=== PATIENT | female | born 2000 | race Caucasian/White ===

== ENCOUNTER 2020-02-14 23:58 | Emergency (ER) | payer OTHER ==
[2020-02-15] MEDS ORDERED: SODIUM CHLORIDE 0.9% 1,000 ML IV STA (00:06)
[2020-02-15 00:09] VITALS: TEMP 97.3
[2020-02-15 00:22] VITALS: RESP 18
[2020-02-15 00:41] LABS: Basophils % (A) 0 %; Eosinophils # (A) 0.2 k/uL (0-0.7); Eosinophils % (A) 2 %; HCT 38.4 % (34.0-46.0); HGB 12.9 gm/dL (11.4-16.0); Lymphocytes % (A) 32 %; MCH 29.5 pg (25.0-35.0); MCHC 33.5 g/dL (31.0-37.0); MCV 88.1 fL (80.0-100.0); Mean Platelet Volume 8.2; Monocytes # (A) 0.4 k/uL (0-1.0); Monocytes % (A) 4 %; Neutrophils # (A) 5.5 k/uL (1.3-7.7); Neutrophils % (A) 60 %; Platelet Count 261 k/uL (150-450); RBC 4.36 m/uL (3.80-5.40); RDW 14.6 % (11.5-15.5); WBC 9.2 k/uL (4.0-11.0)
[2020-02-15 00:52] LABS: ALT 251 U/L (4-34); AST 439 U/L (14-36); African American GFR (CKD) >90 (>60 ml/min/1.73 sqM); Albumin 3.6 g/dL (3.5-5.0); Alcohol <10 mg/dL; Alkaline Phosphatase 66 U/L (38-126); Anion Gap 6 mmol/L; Blood Urea Nitrogen 8 mg/dL (7-17); Calcium 9.4 mg/dL (8.4-10.2); Carbon Dioxide 21 mmol/L (22-30); Chloride 104 mmol/L (98-107); Glucose 112 mg/dL (74-99); Non-African American GFR(CKD) >90 (>60 ml/min/1.73 sqM); Sodium 131 mmol/L (137-145); Total Bilirubin 0.8 mg/dL (0.2-1.3); Total Protein 6.5 g/dL (6.3-8.2)
--- NOTE | 2020-02-15 00:53 | CT ---
EXAM: CT Head Without Intravenous Contrast CLINICAL HISTORY: ITS.REASON CT Reason: trauma TECHNIQUE: Axial computed tomography images of the head/brain without intravenous contrast. CTDI is 25.8 mGy and DLP is 714.5 mGy-cm. This CT exam was performed using one or more of the following dose reduction techniques: automated exposure control, adjustment of the mA and/or kV according to patient size, and/or use of iterative reconstruction technique. COMPARISON: No relevant prior studies available. FINDINGS: Brain: Unremarkable. No hemorrhage. No significant white matter disease. No edema. Ventricles: Unremarkable. No ventriculomegaly. Bones/joints: Unremarkable. No acute fracture. Soft tissues: Unremarkable. Sinuses: Unremarkable as visualized. No acute sinusitis. Mastoid air cells: Unremarkable as visualized. No mastoid effusion. IMPRESSION: Normal head/brain CT. EXAM: CT Cervical Spine Without Intravenous Contrast CLINICAL HISTORY: ITS.REASON CT Reason: trauma TECHNIQUE: Axial computed tomography images of the cervical spine without intravenous contrast. CTDI is 9.1 mGy and DLP is 291 mGy-cm. This CT exam was performed using one or more of the following dose reduction techniques: automated exposure control, adjustment of the mA and/or kV according to patient size, and/or use of iterative reconstruction technique. COMPARISON: No relevant prior studies available. FINDINGS: Vertebrae: Unremarkable. No acute fracture. Soft tissues: Unremarkable. DISCS/SPINAL CANAL/NEURAL FORAMINA: C2-C3: Unremarkable. No significant disc disease. No stenosis. C3-C4: Unremarkable. No significant disc disease. No stenosis. C4-C5: Unremarkable. No significant disc disease. No stenosis. C5-C6: Unremarkable. No significant disc disease. No stenosis. C6-C7: Unremarkable. No significant disc disease. No stenosis. C7-T1: Unremarkable. No significant disc disease. No stenosis. IMPRESSION: Normal cervical spine CT.
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
[2020-02-15] MEDS ORDERED: MORPHINE SULFATE 4 MG/ML SYRINGE IVP STA (00:58)
[2020-02-15 01:01] LABS: INR 0.9 (<1.2); Partial Thromboplastin Time 23.6 sec (22.0-30.0); Prothrombin Time 9.6 sec (9.0-12.0)
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
--- NOTE | 2020-02-15 01:45 | XR ---
EXAM: XR Left Hand Complete, 3 or More Views CLINICAL HISTORY: ITS.REASON XR Reason: pain TECHNIQUE: Frontal, lateral and oblique views of the left hand. COMPARISON: No relevant prior studies available. FINDINGS: Bones/joints: Unremarkable. No acute fracture. No dislocation. Soft tissues: Unremarkable. No radiopaque foreign body. IMPRESSION: Normal left hand x-rays.
--- NOTE | 2020-02-15 01:49 | XR ---
EXAM: XR Left Tibia and Fibula, 2 Views CLINICAL HISTORY: ITS.REASON XR Reason: trauma TECHNIQUE: Frontal and lateral views of the left tibia and fibula. COMPARISON: No relevant prior studies available. FINDINGS: Bones/joints: Unremarkable. No acute fracture. No dislocation. Soft tissues: Unremarkable. No radiopaque foreign body. IMPRESSION: Normal left tibia and fibula x-rays.
[2020-02-15 02:33] VITALS: BP 100/53; PULSE 83
[2020-02-15] MEDS ORDERED: Acetaminophen-Codeine 300-30mg TAB PO STA (03:53)
== END 2020-02-15 04:10 | disposition home or self-care (01) ==
LOC: EC 23:58
DX: S01.81XA Laceration without foreign body of other part of head, initial encounter (principal); O9A.211 Injury, poisoning and certain other consequences of external causes complicating pregnancy, first trimester; S60.512A Abrasion of left hand, initial encounter; O26.611 Liver and biliary tract disorders in pregnancy, first trimester; R74.01 Elevation of levels of liver transaminase levels; Z32.01 Encounter for pregnancy test, result positive; Z91.018 Allergy to other foods; Z79.3 Long term (current) use of hormonal contraceptives; Z3A.00 Weeks of gestation of pregnancy not specified; V43.63XA Car passenger injured in collision with pick-up truck in traffic accident, initial encounter; Y92.488 Other paved roadways as the place of occurrence of the external cause; Y93.89 Activity, other specified
CPT/HCPCS: 36415; 86900; 86901; 80053; 85025; 85610; 85730; 86850; 84703; 80320; 73130; 73590; 72125; 70486; 70450; 99285; 96374; 96361; J2270

== ENCOUNTER 2023-09-16 12:56 | Emergency (ER) | payer OTHER ==
[2023-09-16 13:31] VITALS: RESP 18; TEMP 98
--- NOTE | 2023-09-16 13:47 | ED ---
SOB HPI - General Chief Complaint: Shortness of Breath Stated Complaint: asthma attack, SOB Time Seen by Provider: 09/16/23 13:46 Source: patient, RN notes reviewed Mode of arrival: ambulatory Limitations: no limitations - History of Present Illness Initial Comments: 22-year-old female presented to the ER with a chief complaint of shortness of breath. Patient has a past medical history significant of asthma. Patient reports she recently moved to this area and has not been able to follow-up with a primary care physician since. She states that she lost her inhaler last night and has been having an asthma attack since. She has not used her nebulizer as she is looking for it from her move. She denies any chest pain, dizziness, lightheadedness or abdominal pain. Patient does report that she was but denies any abdominal pain or vaginal bleeding. - Related Data Home Medications Medication Instructions Recorded Confirmed norgestimate-ethinyl estradioL 1 tab PO DAILY 11/25/19 11/25/19 [Sprintec 28 Day Tablet] Previous Rx's Medication Instructions Recorded Albuterol Inhaler [Ventolin Hfa 1 - 2 puff INHALATION Q6H PRN #1 09/16/23 Inhaler] each Albuterol Nebulized [Ventolin 2.5 mg INHALATION Q4H PRN #75 ml 09/16/23 Nebulized] Allergies Allergy/AdvReac Type Severity Reaction Status Date / Time banana Allergy Unknown Verified 09/16/23 13:27 bee venom protein (honey bee) Allergy Swelling Verified 09/16/23 13:27 diphenhydramine AdvReac Itching Verified 09/16/23 13:27 [From Benadryl] quetiapine [From Seroquel] AdvReac Itching Verified 09/16/23 13:27 Review of Systems ROS Statement: Those systems with pertinent positive or pertinent negative responses have been documented in the HPI. ROS Other: All systems not noted in ROS Statement are negative. Past Medical History Past Medical History: Thyroid Disorder History of Any Multi-Drug Resistant Organisms: None Reported Past Surgical History: No Surgical Hx Reported Past Psychological History: No Psychological Hx Reported Smoking Status: Never smoker Past Alcohol Use History: None Reported Past Drug Use History: None Reported General Exam Limitations: no limitations General appearance: alert, in no apparent distress ENT exam: Present: normal exam, normal oropharynx, mucous membranes moist Respiratory exam: Present: wheezes (bilaterally ) Cardiovascular Exam: Present: regular rate, normal rhythm, normal heart sounds. Absent: systolic murmur, diastolic murmur, rubs, gallop, clicks GI/Abdominal exam: Present: soft, normal bowel sounds. Absent: distended, tenderness, guarding, rebound, rigid Skin exam: Present: warm, dry, intact, normal color. Absent: rash Course Vital Signs 09/16/23 09/16/23 09/16/23 13:25 14:21 14:25 Temperature 98 F Pulse Rate 104 H 100 Respiratory 18 22 Rate Blood Pressure 103/71 O2 Sat by Pulse 95 Oximetry 09/16/23 09/16/23 14:28 15:15 Temperature 98 F Pulse Rate 104 H 98 Respiratory 18 Rate Blood Pressure 107/82 O2 Sat by Pulse 96 Oximetry Medical Decision Making - Medical Decision Making Was pt. sent in by a medical professional or institution (, PA, DRILL PRESS SET UP OPERATOR RADIAL, urgent care, hospital, or fci...) When possible be specific @ -No Did you speak to anyone other than the patient for history (EMS, parent, family, police, friend...)? What history was obtained from this source @ -No Did you review nursing and triage notes (agree or disagree)? Why? @ -I reviewed and agree with nursing and triage notes Were old charts reviewed (outside hosp., previous admission, EMS record, old EKG, old radiological studies, urgent care reports/EKG's, fci records)? Report findings @ -No old charts were reviewed Differential Diagnosis (chest pain, altered mental status, abdominal pain women, abdominal pain men, vaginal bleeding, weakness, fever, dyspnea, syncope, headache, dizziness, GI bleed, back pain, seizure, CVA, palpatations, mental health, musculoskeletal)? @ -Differential Dyspnea:Coronary syndrome, arrhythmia, tamponade, asthma, COPD, pulmonary embolism, pneumonia, pneumothorax, pulmonary effusion, anaphylaxis, diabetic ketoacidosis, flailed chest, pulmonary contusion, diaphragmatic rupture, anemia, neuromuscular, this is not meant to be an all-inclusive list. EKG interpreted by me (3pts min.). @ -None X-rays interpreted by me (1pt min.). @ -None done CT interpreted by me (1pt min.). @ -None done U/S interpreted by me (1pt. min.). @ -None done What testing was considered but not performed or refused? (CT, X-rays, U/S, labs)? Why? @ -Chest x-ray considered, patient refused. What meds were considered but not given or refused? Why? @ -Steroids considered but not given as patient is . Did you discuss the management of the patient with other professionals (professionals i.e. , PA, D[employer]LL [employer] SET UP OPERATOR RADIAL, lab, RT, psych nurse, nursing home social worker, zigzagger, teacher, chief commercial officer, rehabilitation case coordinator)? Give summary @ -No Was smoking cessation discussed for >3mins.? @ -No Was critical care preformed (if so, how long)? @ -No Were there social determinants of health that impacted care today? How? (Homelessness, low income, unemployed, alcoholism, drug addiction, transportation, low edu. Level, literacy, decrease access to med. care, halfway, rehab)? @ -Yes, patient recently moved to the area and has not establish care with a primary care physician yet. Was there de-escalation of care discussed even if they declined (Discuss DNR or withdrawal of care, Hospice)? DNR status @ -No What co-morbidities impacted this encounter? (DM, HTN, Smoking, COPD, CAD, Cancer, CVA, ARF, Chemo, Hep., AIDS, mental health diagnosis, sleep apnea, morbid obesity)? @ -Asthma, Was patient admitted / discharged? Hospital course, mention meds given and route, prescriptions, significant lab abnormalities, going to OR and other pertinent info. @ -Discharge. 22-year-old female presented to the ER with chief complaint shortness of breath. History and physical exam completed. Vitals stable. Patient no signs acute distress and nontoxic-appearing. Bilateral wheezing throughout all lung bentley. Patient refused chest x-ray. DuoNeb nebulizer given with improvement of wheezing. Upon reevaluation, patient resting comfortably in exam room in no signs of acute distress. Patient comfortable for discharge with albuterol inhaler and nebulizer. Advise follow-up with PCP, area PCP form given. Strict return parameters given. Patient discharged in stable condition. Patient verbally expressed understanding and agreement with care plan. Case discussed with ED attending, Dr. Blackman. Undiagnosed new problem with uncertain prognosis? @ -No Drug Therapy requiring intensive monitoring for toxicity (Heparin, Nitro, Insulin, Cardizem)? @ -No Were any procedures done? @ -No Diagnosis/symptom? @ -Asthma Acute, or Chronic, or Acute on Chronic? @ -acute on chronic Uncomplicated (without systemic symptoms) or Complicated (systemic symptoms)? @ -uncomplicated Side effects of treatment? @ -No Exacerbation, Progression, or Severe Exacerbation? @ -exacerbation Poses a threat to life or bodily function? How? (Chest pain, [place], [place], pneumonia, PE, COPD, DKA, ARF, appy, cholecystitis, CVA, Diverticulitis, Homicidal, Suicidal, threat to staff... and all critical care pts) @ -Possibly Disposition Clinical Impression: Asthma exacerbation Disposition: HOME SELF-CARE Condition: Stable Instructions (If sedation given, give patient instructions): Asthma (ED) Additional Instructions: Follow-up with PCP. Return to the ER for any new or worsening concerns. Prescriptions: Albuterol Inhaler [Ventolin Hfa Inhaler] 1 - 2 puff INHALATION Q6H PRN #1 each PRN Reason: Shortness Of Breath Albuterol Nebulized [Ventolin Nebulized] 2.5 mg INHALATION Q4H PRN #75 ml PRN Reason: difficulty in breathing Is patient prescribed a controlled substance at d/c from ED?: No Referrals: None,Stated [Primary Care Provider] - 1-2 days Forms: Area PCPs Time of Disposition: 15:05
[2023-09-16] MEDS: IPRATROPIUM-ALBUTEROL 3 ML NEB INHALATION STA (14:18)
[2023-09-16 15:23] VITALS: BP 107/82; PULSE 98
== END 2023-09-16 15:15 | disposition home or self-care (01) ==
LOC: EC 12:56
DX: J45.901 Unspecified asthma with (acute) exacerbation (principal); Z91.018 Allergy to other foods; Z88.8 Allergy status to other drugs, medicaments and biological substances; Z91.030 Bee allergy status
CPT/HCPCS: 94640; 99284

== ENCOUNTER 2023-09-17 15:44 | Emergency (ER) | payer OTHER ==
--- NOTE | 2023-09-17 16:48 | ED ---
General Adult HPI - General Chief complaint: Vaginal Bleeding Stated complaint: Vaginal bleeding-11 weeks preg Time Seen by Provider: 09/17/23 16:20 Source: patient, RN notes reviewed Mode of arrival: ambulatory Limitations: no limitations - History of Present Illness Initial comments: 22 year old A1 female at 11 weeks gestation presents to the emergency department for evaluation of vaginal bleeding in . Patient states that about 1 week ago she had experienced some bleeding and was evaluated here in the ED. She states that she "had a hemorrhage" at that time measuring 6.5 cm. Upon review of report, patient had a perigestational bleed. She states that since then she has had minimal spotting. She notes that today she went to use the bathroom and had darker red blood in the toilet. She states that since then she has had blood when she wipes. She admits to lower abdominal cramping. She reports that she is attempting to get into the [facility]. She has not had an appointment with them yet. - Related Data Home Medications Medication Instructions Recorded Confirmed norgestimate-ethinyl estradioL 1 tab PO DAILY 11/25/19 11/25/19 [Sprintec 28 Day Tablet] Previous Rx's Medication Instructions Recorded Albuterol Inhaler [Ventolin Hfa 1 - 2 puff INHALATION Q6H PRN #1 09/16/23 Inhaler] each Albuterol Nebulized [Ventolin 2.5 mg INHALATION Q4H PRN #75 ml 09/16/23 Nebulized] Allergies Allergy/AdvReac Type Severity Reaction Status Date / Time banana Allergy Unknown Verified 09/17/23 16:12 bee venom protein (honey bee) Allergy Swelling Verified 09/17/23 16:12 diphenhydramine AdvReac Itching Verified 09/17/23 16:12 [From Benadryl] quetiapine [From Seroquel] AdvReac Itching Verified 09/17/23 16:12 Review of Systems ROS Statement: Those systems with pertinent positive or pertinent negative responses have been documented in the HPI. ROS Other: All systems not noted in ROS Statement are negative. Past Medical History Past Medical History: No Reported History, Thyroid Disorder History of Any Multi-Drug Resistant Organisms: None Reported Past Surgical History: No Surgical Hx Reported Past Psychological History: No Psychological Hx Reported Smoking Status: Never smoker Past Alcohol Use History: None Reported Past Drug Use History: None Reported General Exam Limitations: no limitations General appearance: alert, in no apparent distress Head exam: Present: atraumatic, normocephalic, normal inspection Eye exam: Present: normal appearance, PERRL, EOMI. Absent: scleral icterus, conjunctival injection, periorbital swelling ENT exam: Present: normal exam, mucous membranes moist Neck exam: Present: normal inspection. Absent: tenderness, meningismus, lymphadenopathy Respiratory exam: Present: normal lung sounds bilaterally. Absent: respiratory distress, wheezes, rales, rhonchi, stridor Cardiovascular Exam: Present: regular rate, normal rhythm, normal heart sounds. Absent: systolic murmur, diastolic murmur, rubs, gallop, clicks GI/Abdominal exam: Present: soft, normal bowel sounds. Absent: distended, tenderness, guarding, rebound, rigid Extremities exam: Present: normal inspection, full ROM, normal capillary refill. Absent: tenderness, pedal edema, joint swelling, calf tenderness Neurological exam: Present: alert, oriented X3 Psychiatric exam: Present: normal affect, normal mood Skin exam: Present: warm, dry, intact, normal color. Absent: rash Course Vital Signs 09/17/23 09/17/23 16:07 19:59 Temperature 98.5 F 98.3 F Pulse Rate 97 98 Respiratory 18 19 Rate Blood Pressure 117/83 121/78 O2 Sat by Pulse 99 99 Oximetry Medical Decision Making - Medical Decision Making Was pt. sent in by a medical professional or institution ([facility]NICA Feliciano, SILK [employer] MACHINE OPERATOR, urgent care, hospital, or longterm...) When possible be specific @ -No Did you speak to anyone other than the patient for history (EMS, parent, family, police, friend...)? What history was obtained from this source @ -No Did you review nursing and triage notes (agree or disagree)? Why? @ -I reviewed and agree with nursing and triage notes Were old charts reviewed (outside hosp., previous admission, EMS record, old EKG, old radiological studies, urgent care reports/EKG's, longterm records)? Report findings @ -Ultrasound reviewed from prior visit 1 week ago which showed a 6.5 cm perigestational bleed Differential Diagnosis (chest pain, altered mental status, abdominal pain women, abdominal pain men, vaginal bleeding, weakness, fever, dyspnea, syncope, headache, dizziness, GI bleed, back pain, seizure, CVA, palpatations, mental health, musculoskeletal)? @ -Differential Vaginal Bleeding: Spontaneous , threatened , molar , ectopic , bloody show, incompetent cervix, abruptioplacenta, placenta previa, uterine rupture, dysfunctional uterine bleeding, hemorrhage, uterine fibroids, this is not meant to be an all-inclusive list. EKG interpreted by me (3pts min.). @ -None X-rays interpreted by me (1pt min.). @ -None done CT interpreted by me (1pt min.). @ -None done U/S interpreted by me (1pt. min.). @ - ultrasound shows single live intrauterine measuring 10 weeks 6 days with a heart rate of 156 with anechoic area adjacent to gestational sac that is slightly smaller than prior What testing was considered but not performed or refused? (CT, X-rays, U/S, labs)? Why? @ -None What meds were considered but not given or refused? Why? @ -None Did you discuss the management of the patient with other professionals (professionals i.e. , PA, SILK [employer] MACHINE OPERATOR, lab, RT, psych nurse, family welfare social work professor, separator tender, teacher, privacy officer, case picker)? Give summary @ -No Was smoking cessation discussed for >3mins.? @ -No Was critical care preformed (if so, how long)? @ -No Were there social determinants of health that impacted care today? How? (Homelessness, low income, unemployed, alcoholism, drug addiction, transportation, low edu. Level, literacy, decrease access to med. care, usp, rehab)? @ -No Was there de-escalation of care discussed even if they declined (Discuss DNR or withdrawal of care, Hospice)? DNR status @ -No What co-morbidities impacted this encounter? (DM, HTN, Smoking, COPD, CAD, Cancer, CVA, ARF, Chemo, Hep., AIDS, mental health diagnosis, sleep apnea, morbid obesity)? @ -None Was patient admitted / discharged? Hospital course, mention meds given and route, prescriptions, significant lab abnormalities, going to OR and other pertinent info. @ -Discharged. Patient presented to the emergency department for evaluation of lower abdominal cramping and vaginal bleeding in . She states that earlier today she had passed a large clot. She states that since then she has had light spotting. She does note continued lower abdominal cramping. She was evaluated for similar symptoms 1 week ago and was told that she had a perigestational bleed measuring 6.5 cm. Labs were obtained today which Are unremarkable other than Quantitative hCG of [id number]; UA shows no evidence of infectious process. Ultrasound obtained which shows a single live intrauterine measuring 10 weeks 6 days with a heart rate of 156. There is a anechoic region adjacent to the gestational sac which is slightly smaller than on her prior ultrasound 1 week ago. Positive blood type not requiring rhogam. Patient advised on findings and will be discharged home with follow-up to her [facility]. Patient understanding agreeable plan. Patient stable at time of discharge. Case discussed with Dr. Santamaria. Undiagnosed new problem with uncertain prognosis? @ -No Drug Therapy requiring intensive monitoring for toxicity (Heparin, Nitro, Insulin, Cardizem)? @ -No Were any procedures done? @ -No Diagnosis/symptom? @ -Chorionic hematoma Acute, or Chronic, or Acute on Chronic? @ -acute Uncomplicated (without systemic symptoms) or Complicated (systemic symptoms)? @ -uncomplicated Side effects of treatment? @ -No Exacerbation, Progression, or Severe Exacerbation? @ -No Poses a threat to life or bodily function? How? (Chest pain, USA, NH, pneumonia, PE, COPD, DKA, ARF, appy, cholecystitis, CVA, Diverticulitis, Homicidal, Suicidal, threat to staff... and all critical care pts) @ -No - Lab Data Result diagrams: 09/17/23 17:13 09/17/23 17:13 Lab Results 09/17/23 09/17/23 09/17/23 Range/Units 16:21 17:13 17:13 WBC 7.3 (3.8-10.6) k/uL RBC 4.41 (3.80-5.40) m/uL Hgb 11.4 (11.4-16.0) gm/dL Hct 36.1 (34.0-46.0) % MCV 81.8 (80.0-100.0) fL MCH 25.9 (25.0-35.0) pg MCHC 31.7 (31.0-37.0) g/dL RDW 15.3 (11.5-15.5) % Plt Count 257 (150-450) k/uL MPV 8.8 Neutrophils % 62 % Lymphocytes % 24 % Monocytes % 6 % Eosinophils % 4 % Basophils % 0 % Neutrophils # 4.5 (1.3-7.7) k/uL Lymphocytes # 1.8 (1.0-4.8) k/uL Monocytes # 0.4 (0-1.0) k/uL Eosinophils # 0.3 (0-0.7) k/uL Basophils # 0.0 (0-0.2) k/uL PT 10.5 (10.0-12.5) sec INR 0.9 (<1.2) APTT 26.0 (22.0-30.0) sec Sodium (137-145) mmol/L Potassium (3.5-5.1) mmol/L Chloride (98-107) mmol/L Carbon Dioxide (22-30) mmol/L Anion Gap mmol/L BUN (7-17) mg/dL Creatinine (0.52-1.04) mg/dL Est GFR (CKD-EPI)AfAm (>60 ml/min/1.73 sqM) Est GFR (CKD-EPI)NonAf (>60 ml/min/1.73 sqM) Glucose (74-99) mg/dL Calcium (8.4-10.2) mg/dL Total Bilirubin (0.2-1.3) mg/dL AST (14-36) U/L ALT (4-34) U/L Alkaline Phosphatase (38-126) U/L Total Protein (6.3-8.2) g/dL Albumin (3.5-5.0) g/dL HCG, Quant mIU/mL Urine Color Yellow Urine Appearance Clear (Clear) Urine pH 5.5 (5.0-8.0) Ur Specific Perryman 1.031 (1.001-1.035) Urine Protein Trace H (Negative) Urine Glucose (UA) Negative (Negative) Urine Ketones 3+ H (Negative) Urine Blood Moderate H (Negative) Urine Nitrite Negative (Negative) Urine Bilirubin Negative (Negative) Urine Urobilinogen <2.0 (<2.0) mg/dL Ur Leukocyte Esterase Negative (Negative) Urine RBC 2 (0-5) /hpf Urine WBC 1 (0-5) /hpf Ur Squamous Epith Cells 2 (0-4) /hpf Urine Mucus Rare H (None) /hpf 09/17/23 Range/Units 17:13 WBC (3.8-10.6) k/uL RBC (3.80-5.40) m/uL Hgb (11.4-16.0) gm/dL Hct (34.0-46.0) % MCV (80.0-100.0) fL MCH (25.0-35.0) pg MCHC (31.0-37.0) g/dL RDW (11.5-15.5) % Plt Count (150-450) k/uL MPV Neutrophils % % Lymphocytes % % Monocytes % % Eosinophils % % Basophils % % Neutrophils # (1.3-7.7) k/uL Lymphocytes # (1.0-4.8) k/uL Monocytes # (0-1.0) k/uL Eosinophils # (0-0.7) k/uL Basophils # (0-0.2) k/uL PT (10.0-12.5) sec INR (<1.2) APTT (22.0-30.0) sec Sodium 134 L (137-145) mmol/L Potassium 3.7 (3.5-5.1) mmol/L Chloride 107 (98-107) mmol/L Carbon Dioxide 17 L (22-30) mmol/L Anion Gap 10 mmol/L BUN 7 (7-17) mg/dL Creatinine 0.53 (0.52-1.04) mg/dL Est GFR (CKD-EPI)AfAm >90 (>60 ml/min/1.73 sqM) Est GFR (CKD-EPI)NonAf >90 (>60 ml/min/1.73 sqM) Glucose 81 (74-99) mg/dL Calcium 9.1 (8.4-10.2) mg/dL Total Bilirubin 0.8 (0.2-1.3) mg/dL AST 20 (14-36) U/L ALT 14 (4-34) U/L Alkaline Phosphatase 59 (38-126) U/L Total Protein 6.8 (6.3-8.2) g/dL Albumin 3.9 (3.5-5.0) g/dL HCG, Quant 775022.0 mIU/mL Urine Color Urine Appearance (Clear) Urine pH (5.0-8.0) Ur Specific Perryman (1.001-1.035) Urine Protein (Negative) Urine Glucose (UA) (Negative) Urine Ketones (Negative) Urine Blood (Negative) Urine Nitrite (Negative) Urine Bilirubin (Negative) Urine Urobilinogen (<2.0) mg/dL Ur Leukocyte Esterase (Negative) Urine RBC (0-5) /hpf Urine WBC (0-5) /hpf Ur Squamous Epith Cells (0-4) /hpf Urine Mucus (None) /hpf Disposition Clinical Impression: Threatened miscarriage in early , Vaginal bleeding during Disposition: HOME SELF-CARE Condition: Stable Instructions (If sedation given, give patient instructions): Threatened Miscarriage (ED), Abdominal Pain in (ED) Additional Instructions: Please follow up with [facility]. Return to the emergency department for new or worsening symptoms. Is patient prescribed a controlled substance at d/c from ED?: No Referrals: None,Stated [Primary Care Provider] - 1-2 days
[2023-09-17 17:23] LABS: Basophils % (A) 0 %; Eosinophils # (A) 0.3 k/uL (0-0.7); Eosinophils % (A) 4 %; HCT 36.1 % (34.0-46.0); HGB 11.4 gm/dL (11.4-16.0); Lymphocytes # (A) 1.8 k/uL (1.0-4.8); Lymphocytes % (A) 24 %; MCH 25.9 pg (25.0-35.0); MCHC 31.7 g/dL (31.0-37.0); MCV 81.8 fL (80.0-100.0); Mean Platelet Volume 8.8; Monocytes # (A) 0.4 k/uL (0-1.0); Monocytes % (A) 6 %; Neutrophils # (A) 4.5 k/uL (1.3-7.7); Neutrophils % (A) 62 %; Platelet Count 257 k/uL (150-450); RBC 4.41 m/uL (3.80-5.40); RDW 15.3 % (11.5-15.5); WBC 7.3 k/uL (3.8-10.6)
[2023-09-17 17:31] LABS: INR 0.9 (<1.2); Prothrombin Time 10.5 sec (10.0-12.5)
[2023-09-17 17:35] LABS: ALT 14 U/L (4-34); AST 20 U/L (14-36); African American GFR (CKD) >90 (>60 ml/min/1.73 sqM); Albumin 3.9 g/dL (3.5-5.0); Alkaline Phosphatase 59 U/L (38-126); Anion Gap 10 mmol/L; Blood Urea Nitrogen 7 mg/dL (7-17); Calcium 9.1 mg/dL (8.4-10.2); Carbon Dioxide 17 mmol/L (22-30); Chloride 107 mmol/L (98-107); Glucose 81 mg/dL (74-99); Non-African American GFR(CKD) >90 (>60 ml/min/1.73 sqM); Potassium 3.7 mmol/L (3.5-5.1); Sodium 134 mmol/L (137-145); Total Bilirubin 0.8 mg/dL (0.2-1.3); Total Protein 6.8 g/dL (6.3-8.2)
--- NOTE | 2023-09-17 18:53 | US ---
EXAMINATION TYPE: Transabdominal DATE OF EXAM: 09/17/2023 5:41 PM COMPARISON: 09/11/2023 CLINICAL INDICATION: Female, 22 years old with history of bleeding 11 wks; Pain and heavy bleeding pe r patient. EXAM PERFORMED: Transabdominal (TA) EXAM MEASUREMENTS: GESTATIONAL AGE / DATING Dates by LMP: (11 weeks/2 days) EDC: 04/05/2024 Dates by First Scan: (10 weeks/6 days) EDC: 04/08/2024 Dates by Current Scan for: (10 weeks/6 days) EDC: 04/08/2024 MATERNAL ANATOMY Uterus: 10.1 x 8.1 x 9.9cm, anteverted Right Ovary: 3.0 x 1.7 x 2.8cm. WNL as best seen Left Ovary: 3.4 x 2.0 x 3.4 cm. WNL as best seen Post CDS / Adnexa: WNL Presence of free fluid: No Presence of corpus luteal cyst: No Presence of subchorionic bleed: Yes, 4.3 x 1.1 x 6.1cm anechoic area seen. Previously measured 5.7 x 1.7 x 6.6cm. GESTATION / SURVEY CRL: 3.9 (10 weeks/6 days) Yolk Sac (normal less than 6mm): 5mm Heart Rate: 156 bpm Rhythm: Normal IUP: Viable IUP Date of LMP: 06/30/2023 Beta HcG (if available): Not available at this time IMPRESSION: 1. Single intrauterine gestation estimated at 10 weeks 6 days gestation based on the crown-rump lengt h. Cardiac activity measures 156 bpm. 2. Anechoic area adjacent to the gestational sac, slightly smaller than comparison.
[2023-09-17 20:18] LABS: Appearance,Urine Clear (Clear); Bilirubin,Urine Negative (Negative); Blood,Urine Moderate (Negative); Color,Urine Yellow; Glucose,Urine (UA) Negative (Negative); Ketones,Urine 3+ (Negative); Leukocyte Esterase,Urine Negative (Negative); Mucus,Urine Rare /hpf; Nitrite,Urine Negative (Negative); PH, Urine 5.5 (5.0-8.0); Protein,Urine Trace (Negative); RBC,Urine 2 /hpf (0-5); Specific Gravity,Urine 1.031 (1.001-1.035); Squamous Epithelial Cell,Urine 2 /hpf (0-4); Urobilinogen,Urine <2.0 mg/dL (<2.0); WBC,Urine 1 /hpf (0-5)
[2023-09-17 20:22] VITALS: BP 121/78; PULSE 98; RESP 19; TEMP 98.3
== END 2023-09-17 20:02 | disposition home or self-care (01) ==
LOC: EC 15:44
DX: O20.0 Threatened abortion (principal); Z91.018 Allergy to other foods; Z91.030 Bee allergy status; Z88.8 Allergy status to other drugs, medicaments and biological substances; Z3A.11 11 weeks gestation of pregnancy
CPT/HCPCS: 36415; 76801; 80053; 81001; 84702; 85025; 85610; 85730; 99284

== ENCOUNTER 2023-12-19 10:02 | Emergency (ER) | payer OTHER | END 2023-12-19 12:18 | disposition home or self-care (01) | LOC: EC 10:02 | CPT/HCPCS: 26010; 99282 ==

== ENCOUNTER 2024-03-15 05:45 | Inpatient (IN) | payer OTHER ==
[2024-03-15] MEDS ORDERED: TERBUTALINE 1 MG/ML VIAL SQ PRN (06:04)
[2024-03-15] MEDS ORDERED: METHYLERGONOVINE 0.2 MG/ML 1 ML AMP IM PRN (06:04)
[2024-03-15] MEDS ORDERED: miSOPROStoL 200 MCG TAB RECTAL PRN (06:04)
[2024-03-15] MEDS ORDERED: LIDOCAINE 0.5% (PF) 5 MG/ML (50 ML SDV) SQ PRN (06:04)
[2024-03-15] MEDS ORDERED: OXYTOCIN 10 UNIT/ML 1 ML VIAL IM PRN (06:04)
[2024-03-15] MEDS ORDERED: TRANEXAMIC 1,000 MG/100ML-NACL 1,000 MG in EMPTY BAG 1 BAG IV PRN (06:04)
[2024-03-15] MEDS ORDERED: CARBOPROST TROMETHAMINE 250 MCG/ML 1 ML AMP IM PRN (06:04)
[2024-03-15] MEDS ORDERED: miSOPROStoL 200 MCG TAB PO PRN (06:04)
[2024-03-15] MEDS: LACTATED RINGERS 1,000 ML IV SCH (06:22)
[2024-03-15 06:26] LABS: Anisocytosis Slight; Basophils % (A) 0 %; Eosinophils # (A) 0.2 k/uL (0-0.7); Eosinophils % (A) 2 %; HCT 28.3 % (34.0-46.0); HGB 8.8 gm/dL (11.4-16.0); Hypochromasia Marked; Lymphocytes # (A) 1.9 k/uL (1.0-4.8); Lymphocytes % (A) 18 %; MCH 23.1 pg (25.0-35.0); MCHC 31.2 g/dL (31.0-37.0); MCV 74.2 fL (80.0-100.0); Microcytosis Slight; Monocytes # (A) 0.6 k/uL (0-1.0); Monocytes % (A) 6 %; Neutrophils # (A) 7.5 k/uL (1.3-7.7); Neutrophils % (A) 72 %; Platelet Count 277 k/uL (150-450); RBC 3.81 m/uL (3.80-5.40); RDW 16.9 % (11.5-15.5); WBC 10.5 k/uL (3.8-10.6)
[2024-03-15] MEDS: PENICILLIN G POTASSIUM 5,000,000 UNIT in DEXTROSE 5% IN WATER 100 ML IVPB STA (06:27)
[2024-03-15] MEDS: OXYTOCIN 30 UNITS/500 ML NS 30 UNIT in SALINE 1 500ML.BAG IV SCH (06:28)
[2024-03-15] MEDS ORDERED: BUTORPHANOL 1 MG/ML 1 ML VIAL IV PRN (07:21)
--- NOTE | 2024-03-15 07:25 | P.HPOB ---
History of Present Illness H&P Date: 03/15/24 Chief Complaint: 37-0/7 weeks, IUGR, induction The patient is a 23-year-old 5 para 3-0-1-3 admitted at 37-0/7 weeks as established by last menstrual period and confirmed by 12-week ultrasound. She is admitted for induction of labor secondary to the diagnosis of intrauterine growth restriction with growth consistently at less than 10th percentile during the . Routine twice weekly testing has been reassuring throughout. Her has been otherwise uncomplicated though she is rubella nonimmune. She is also known to be group B strep positive. On labor delivery, all signs are reassuring with a category 1 heart rate tracing. The patient has requested tubal ligation which will be carried out if section becomes necessary but otherwise will be carried out in the phase. Obstetrical history: 5 para 3-0-1-3 with 3 term vaginal deliveries. Current statistics are listed in history of present illness. EDC of 04/05/2024 was established by last menstrual period and confirmed by 12-week u ltrasound. Laboratory workup demonstrates a blood type of O+ with a negative antibody screen. Rubella status is nonimmune. The remainder of the laboratory workup is within normal limits. 1 hour Glucola was normal and group B strep status is positive. Gynecologic history: Unremarkable with no history of any infections to include STDs. Review of Systems Review of systems is confined to history of present illness. Past Medical History Past Medical History: Asthma, Thyroid Disorder History of Any Multi-Drug Resistant Organisms: None Reported Past Surgical History: No Surgical Hx Reported Additional Past Surgical History / Comment(s): D&C 2021 Past Anesthesia/Blood Transfusion Reactions: No Reported Reaction Past Psychological History: No Psychological Hx Reported Smoking Status: Former smoker Past Alcohol Use History: None Reported Past Drug Use History: Marijuana Additional Drug Use History / Comment(s): Past smoker - Past Family History Brother(s) Additional Family Medical History / Comment(s): Neofibromatosis Medications and Allergies Home Medications Medication Instructions Recorded Confirmed Type Albuterol Inhaler [Ventolin Hfa 1 - 2 puff INHALATION Q6H PRN #1 09/16/23 Rx Inhaler] each Albuterol Nebulized [Ventolin 2.5 mg INHALATION Q4H PRN #75 ml 09/16/23 03/15/24 Rx Nebulized] Levothyroxine Sodium [Synthroid] 50 mcg PO DAILY 03/15/24 03/15/24 History Allergies Allergy/AdvReac Type Severity Reaction Status Date / Time banana Allergy Unknown Verified 03/15/24 06:01 bee venom protein (honey bee) Allergy Swelling Verified 03/15/24 06:01 diphenhydramine AdvReac Itching Verified 03/15/24 06:01 [From Benadryl] quetiapine [From Seroquel] AdvReac Itching Verified 03/15/24 06:01 Exam Vital Signs Temp Pulse Resp BP Pulse Ox 03/15/24 06:00 96.7 F L 105 H 18 115/64 98 Intake and Output 03/14/24 03/15/24 03/15/24 22:59 06:59 14:59 Other: # Voids 1 Weight 72.121 kg In general, this is a well-developed, well-nourished white female in no acute distress. Her heart has a regular rhythm rate without murmur. Her lungs are clear to auscultation bilateral in all bentley. Her abdomen is gravid, nondistended, has normal active bowel sounds, soft, nontender, and without any palpable masses aside from uterine fundus. Her extremities are without any cyanosis, clubbing, or edema and are nontender to palpation bilaterally. Digital cervical examination demonstrates her cervix to be 1 to 2 cm dilated, 50% effaced, with a vertex and presentation at -2 station. Artificial rupture of membranes is carried out demonstrating clear fluid. Results Result Diagrams: 03/15/24 06:08 Abnormal Lab Results - Last 24 Hours (Table) 03/15/24 Range/Units 06:08 Hgb 8.8 L (11.4-16.0) gm/dL Hct 28.3 L (34.0-46.0) % MCV 74.2 L (80.0-100.0) fL MCH 23.1 L (25.0-35.0) pg RDW 16.9 H (11.5-15.5) % Assessment and Plan (1) Group B streptococcal infection in Current Visit: Yes Status: Acute Code(s): O98.819 - OTH MATERNAL INFEC/PARASTC DISEASES COMP PREG, UNSP TRI; B95.1 - STREPTOCOCCUS, GROUP B, CAUSING DISEASES CLASSD [id number] SNOMED Code(s): 900830659 (2) Intrauterine growth retardation in Current Visit: Yes Status: Acute Code(s): O36.5990 - MATERN CARE FOR OTH OR SUSP POOR FETL GRTH, UNSP TRI, UNSP SNOMED Code(s): 290956267 (3) Term Current Visit: Yes Status: Acute Code(s): Z34.90 - ENCNTR FOR SUPRVSN OF NORMAL , UNSP, UNSP TRIMESTER SNOMED Code(s): 86257547 Plan: The patient has been admitted for induction of labor. Pitocin augmentation has been started and artificial rupture membranes carried out. She will have close maternal and surveillance and expectant management will be practiced. She is a good candidate for either IV or epidural analgesia, whichever she may choose.
[2024-03-15] MEDS: PENICILLIN G POTASSIUM 2,500,000 UNIT in DEXTROSE 5% IN WATER 100 ML IVPB SCH (11:07)
[2024-03-15] MEDS: NALBUPHINE 10 MG/ML (10 ML MDV) IV PRN (13:09)
[2024-03-15] MEDS ORDERED: ROPIVACAINE 5 MG/ML 30 ML VIAL ONE (17:20)
[2024-03-15] MEDS ORDERED: fentaNYL (PF) 50 MCG/ML 5 ML AMP ONE (17:20)
[2024-03-15] MEDS ORDERED: SODIUM CHLORIDE 0.9% 250 ML BAG ONE (17:20)
[2024-03-15] MEDS: ALBUTEROL HFA INHALER INHALATION PRN (20:23)
[2024-03-15] MEDS ORDERED: LANOLIN CREAM 1 GM TUBE TOPICAL PRN (21:46)
[2024-03-15] MEDS ORDERED: ZOLPIDEM 5 MG TAB PO PRN (21:46)
[2024-03-15] MEDS ORDERED: BENZOCAINE/MENTHOL SPRAY 1 GM/SPRAY AEROSOL TOPICAL PRN (21:46)
[2024-03-15] MEDS ORDERED: HYDROCORTISONE 2.5% RECTAL CREAM 30 GM TUBE RECTAL PRN (21:46)
[2024-03-15] MEDS ORDERED: SIMETHICONE 80 MG CHEWABLE PO PRN (21:46)
[2024-03-15] MEDS ORDERED: ACETAMINOPHEN TAB 500 MG TAB PO PRN (21:46)
--- NOTE | 2024-03-15 21:51 | P.PROBDLV ---
Vaginal Delivery Note - . Vaginal Delivery Note: The patient is a 23-year-old 5 para 3-0-1-3 admitted at 37-0/7 weeks by good dating parameters. She is admitted for induction of labor secondary to a diagnosis of intrauterine growth restriction for which she had twice weekly testing which was reassuring throughout the since the diagnosis. Her was otherwise uncomplicated though she is known to be rubella immune. She additionally was found to be group B strep positive. On labor and delivery, all signs were reassuring with a category 1 heart rate tracing. She had antibiotic prophylaxis started for group B strep and Pitocin augmentation started. She underwent artificial rupture of membranes for clear fluid. She made slow progress through the latent phase of labor and shortly after the onset of active phase of labor had an epidural catheter placed for analgesia. She then made steady progress through the remainder of the active phase of labor to complete and 0 station. She pushed over the course of 1 contraction to a normal spontaneous vaginal delivery of a viable 5 pound 7 ounce baby girl with Apgars of 9 at 1 minute and 9 at 5 minutes delivered in the right occiput anterior position. The placenta was delivered spontaneously, intact, and grossly normal with a grossly normal roughly centrally inserted three-vessel cord that was otherwise fairly short. There were no lacerations of the perineum, vagina, or cervix. Estimated blood loss for the case was 150 mL. There were no complications. All sponge, instrument, and needle counts were correct. Both mother and infant are resting comfortably in recovery.
[2024-03-15 22:00] VITALS: RESP 16
[2024-03-15] MEDS ORDERED: OXYTOCIN 30 UNITS/500 ML NS 30 UNIT in SALINE 1 500ML.BAG IV SCH (22:00)
[2024-03-16 07:19] LABS: Anisocytosis Slight; Basophils % (A) 0 %; Eosinophils # (A) 0.2 k/uL (0-0.7); Eosinophils % (A) 2 %; HCT 30.8 % (34.0-46.0); HGB 9.5 gm/dL (11.4-16.0); Hypochromasia Marked; Lymphocytes # (A) 1.8 k/uL (1.0-4.8); Lymphocytes % (A) 13 %; MCH 23.3 pg (25.0-35.0); MCHC 30.8 g/dL (31.0-37.0); MCV 75.6 fL (80.0-100.0); Mean Platelet Volume 7.4; Microcytosis Slight; Monocytes # (A) 0.8 k/uL (0-1.0); Monocytes % (A) 6 %; Neutrophils # (A) 10.5 k/uL (1.3-7.7); Neutrophils % (A) 77 %; Platelet Count 266 k/uL (150-450); RBC 4.08 m/uL (3.80-5.40); WBC 13.6 k/uL (3.8-10.6)
[2024-03-16] MEDS: IBUPROFEN 800 MG TAB PO PRN (08:38)
[2024-03-16] MEDS: SENNOSIDES-DOCUSATE SODIUM 1 EACH TAB PO SCH (08:39)
--- NOTE | 2024-03-16 08:46 | P.DS ---
Providers Date of admission: 03/15/24 05:45 Expected date of discharge: 03/16/24 Attending physician: Arden Marques Primary care physician: Stated None - Discharge Diagnosis(es) (1) Group B streptococcal infection in Current Visit: Yes Status: Acute (2) Intrauterine growth retardation in Current Visit: Yes Status: Acute (3) Term Current Visit: Yes Status: Acute (4) Normal spontaneous vaginal delivery Current Visit: Yes Status: Acute Hospital Course: The patient is a 23-year-old 5 para 3-0-1-3 admitted at 37-0/7 weeks by good dating parameters. She is admitted for induction of labor secondary to IUGR. testing was reassuring twice weekly from the time of the diagnosis during her . She was otherwise uncomplicated in though she is rubella nonimmune and group B strep positive. On labor delivery, all signs are reassuring with a category 1 heart rate tracing. She had antibiotic prophylaxis started along with Pitocin augmentation and underwent artificial rupture of membranes for clear fluid. She made very slow progress through the latent phase of labor and ultimately had a an epidural catheter placed for analgesia. She then progressed more steadily through the active phase of labor and ultimately reached complete and 0 station. She pushed over the course of 1 contraction to a normal spontaneous vaginal delivery of a viable 5 pound 7 ounce baby girl with Apgars of 9 at 1 minute and 9 at 5 minutes. Her course has been unremarkable with vital signs remaining stable and her temperature was afebrile throughout. She was deemed stable for discharge on day #1 and was discharged home to follow-up in the office in 6 weeks time routinely. She may potentially choose to stay 1 more night but is uncertain at this time as delivery was late. Discharge instructions included calling for any significantly increased bleeding or foul-smelling lochia, significantly increased fever abdominal pain, perineal complaints, breast complaints, or anything else that concerned her. She was additionally instructed to have nothing in the vagina for at least 6 weeks time to include intercourse. She understood her instructions and agrees to follow-up as noted above. Maternal blood type is O+ and rubella status is nonimmune. She was to receive the MMR vaccination prior to discharge. She additionally has requested tubal ligation and will follow-up for scheduling of outpatient surgery at or just short of the normal visit interval. Procedures: #1. Antibiotic prophylaxis #2. Pitocin induction #3. Artificial rupture of membranes #4. Epidural analgesia #5. Normal spontaneous vaginal delivery Patient Condition at Discharge: Stable Plan - Discharge Summary New Discharge Prescriptions: No Action Levothyroxine Sodium [Synthroid] 50 mcg PO DAILY Albuterol Inhaler [Ventolin Hfa Inhaler] 1 - 2 puff INHALATION Q6H PRN #1 each PRN Reason: Shortness Of Breath Albuterol Nebulized [Ventolin Nebulized] 2.5 mg INHALATION Q4H PRN #75 ml PRN Reason: difficulty in breathing Discharge Medication List Albuterol Inhaler [Ventolin Hfa Inhaler] 1 - 2 puff INHALATION Q6H PRN #1 each 09/16/23 [Rx] Albuterol Nebulized [Ventolin Nebulized] 2.5 mg INHALATION Q4H PRN #75 ml 09/16/23 [Rx] Levothyroxine Sodium [Synthroid] 50 mcg PO DAILY 03/15/24 [History] Follow up Appointment(s)/Referral(s): Arden Marques MD [STAFF PHYSICIAN] - 04/26/24 2:45 pm Discharge Disposition: HOME SELF-CARE
[2024-03-17 16:04] VITALS: BP 112/78; PULSE 79; TEMP 99.4
== END 2024-03-17 16:05 | disposition home or self-care (01) | DRG 560 ==
LOC: 4FBP 05:45
PROVIDERS: ADMIT Obstetrics & Gynecology; ATTEND Obstetrics & Gynecology
PROC: 10E0XZZ Delivery of Products of Conception, External Approach (ICD-10-PCS; principal; 2024-03-15)
PROC: 10907ZC Drainage of Amniotic Fluid, Therapeutic from Products of Conception, Via Natural or Artificial Opening (ICD-10-PCS; 2024-03-15)
PROC: 3E033VJ Introduction of Other Hormone into Peripheral Vein, Percutaneous Approach (ICD-10-PCS; 2024-03-15)
DX: O36.5930 Maternal care for other known or suspected poor fetal growth, third trimester, not applicable or unspecified (principal); Z37.0 Single live birth; O98.82 Other maternal infectious and parasitic diseases complicating childbirth; B95.1 Streptococcus, group B, as the cause of diseases classified elsewhere; O99.824 Streptococcus B carrier state complicating childbirth; E07.9 Disorder of thyroid, unspecified; Z3A.37 37 weeks gestation of pregnancy; Z87.891 Personal history of nicotine dependence; Z79.890 Hormone replacement therapy
CPT/HCPCS: 85025; 86850; 86900; 86901

== ENCOUNTER 2024-06-15 16:09 | Emergency (ER) | payer OTHER ==
--- NOTE | 2024-06-15 17:34 | ED ---
Chest Pain HPI - General Chief Complaint: Chest Pain Stated Complaint: Chest pains Time Seen by Provider: 06/15/24 17:06 Source: patient Mode of arrival: ambulatory Limitations: no limitations - History of Present Illness Initial Comments: 23-year-old female presenting chief complaint of shortness of breath and chest pain. Patient started experiencing cough and shortness of breath yesterday. Chest pain started about 2 hours ago. This is a sharp pain worse with coughing. Patient does have history of asthma and is a daily vapor. No fever. She does admit to sore throat. No nausea vomiting or abdominal pain. No lower extremity swelling. No oral contraceptive use. No recent surgery or long travel. No history of blood clots. - Related Data Home Medications Medication Instructions Recorded Confirmed Levothyroxine Sodium [Synthroid] 50 mcg PO DAILY 03/15/24 03/15/24 Previous Rx's Medication Instructions Recorded Albuterol Inhaler [Ventolin Hfa 1 - 2 puff INHALATION Q6H PRN #1 09/16/23 Inhaler] each Albuterol Nebulized [Ventolin 2.5 mg INHALATION Q4H PRN #75 ml 09/16/23 Nebulized] Albuterol Nebulized [Ventolin 2.5 mg INHALATION Q4H PRN 8 Days 06/15/24 Nebulized] #150 ml Albuterol Sulfate [Albuterol 2 puff PO Q6H PRN #8.5 gm 06/15/24 Sulfate Hfa] predniSONE 50 mg PO DAILY 5 Days #5 tab 06/15/24 Allergies Allergy/AdvReac Type Severity Reaction Status Date / Time banana Allergy Unknown Verified 06/15/24 17:04 bee venom protein (honey bee) Allergy Swelling Verified 06/15/24 17:04 diphenhydramine AdvReac Itching Verified 06/15/24 17:04 [From Benadryl] quetiapine [From Seroquel] AdvReac Itching Verified 06/15/24 17:04 Review of Systems ROS Statement: Those systems with pertinent positive or pertinent negative responses have been documented in the HPI. ROS Other: All systems not noted in ROS Statement are negative. Past Medical History Past Medical History: Asthma, Thyroid Disorder History of Any Multi-Drug Resistant Organisms: None Reported Past Surgical History: No Surgical Hx Reported Additional Past Surgical History / Comment(s): D&C 2021 Past Anesthesia/Blood Transfusion Reactions: No Reported Reaction Past Psychological History: No Psychological Hx Reported Smoking Status: Former smoker, Vaper Past Alcohol Use History: Occasional Past Drug Use History: Marijuana - Past Family History Brother(s) Additional Family Medical History / Comment(s): Neofibromatosis General Exam Limitations: no limitations General appearance: alert, in no apparent distress Head exam: Present: atraumatic, normocephalic, normal inspection Eye exam: Present: normal appearance, EOMI Neck exam: Present: normal inspection. Absent: meningismus Respiratory exam: Present: normal lung sounds bilaterally, chest wall tenderness. Absent: respiratory distress, wheezes, rales, rhonchi, stridor Cardiovascular Exam: Present: regular rate, normal rhythm, normal heart sounds. Absent: systolic murmur, diastolic murmur, rubs, gallop, clicks Extremities exam: Absent: pedal edema Neurological exam: Present: alert, oriented X3 Psychiatric exam: Present: normal affect, normal mood Skin exam: Present: warm, dry, normal color Course Vital Signs 06/15/24 06/15/24 06/15/24 17:03 18:36 18:43 Temperature 98.6 F Pulse Rate 114 H 78 72 Respiratory 20 Rate Blood Pressure 110/76 O2 Sat by Pulse 95 Oximetry 06/15/24 20:40 Temperature 97.7 F Pulse Rate 70 Respiratory 18 Rate Blood Pressure 115/70 O2 Sat by Pulse 98 Oximetry Chest Pain MDM - MDM Was pt. sent in by a medical professional or institution (, PA, [facility], urgent care, hospital, or care home...) When possible be specific @ -No Did you speak to anyone other than the patient for history (EMS, parent, family, police, friend...)? What history was obtained from this source @ -No Did you review nursing and triage notes (agree or disagree)? Why? @ -I reviewed and agree with nursing and triage notes Were old charts reviewed (outside hosp., previous admission, EMS record, old EKG, old radiological studies, urgent care reports/EKG's, care home records)? Report findings @ -No old charts were reviewed Differential Diagnosis (chest pain, altered mental status, abdominal pain women, abdominal pain men, vaginal bleeding, weakness, fever, dyspnea, syncope, headache, dizziness, GI bleed, back pain, seizure, CVA, palpatations, mental health, musculoskeletal)? @ -MDM Differential Chest Pain: Stable Angina, Unstable Angina, STEMI, NSTEMI Aortic Dissection, Pneumothorax, Musculoskeletal, Esophageal Spasm GERD, Cholecystitis, Pancreatitis, Zoster This is not meant to be an all-inclusive list. EKG interpreted by me (3pts min.). @ -EKG shows sinus tachycardia ventricular rate 113. VA interval 143. QRS 90. QT 323. QTc 390. X-rays interpreted by me (1pt min.). @ -Chest x-ray shows no acute cardiopulmonary disease/process CT interpreted by me (1pt min.). @ -None done U/S interpreted by me (1pt. min.). @ -None done What testing was considered but not performed or refused? (CT, X-rays, U/S, labs)? Why? @ -None What meds were considered but not given or refused? Why? @ -None Did you discuss the management of the patient with other professionals (professionals i.e. , PA, [facility], lab, RT, psych nurse, social media marketing analyst, printed circuit boards solder leveler, teacher, driver license reviewing officer, case investigator)? Give summary @ -No Was smoking cessation discussed for >3mins.? @ -No Was critical care preformed (if so, how long)? @ -No Were there social determinants of health that impacted care today? How? (Homelessness, low income, unemployed, alcoholism, drug addiction, transportation, low edu. Level, literacy, decrease access to med. care, detention, rehab)? @ -No Was there de-escalation of care discussed even if they declined (Discuss DNR or withdrawal of care, Hospice)? DNR status @ -No What co-morbidities impacted this encounter? (DM, HTN, Smoking, COPD, CAD, Cancer, CVA, ARF, Chemo, Hep., AIDS, mental health diagnosis, sleep apnea, morbid obesity)? @ -None Was patient admitted / discharged? Hospital course, mention meds given and route, prescriptions, significant lab abnormalities, going to OR and other pertinent info. @ -23-year-old female with history of asthma presenting with chief complaint of chest pain. Started 2 hours ago. Also admits to cough and shortness of breath. History and physical examination are conducted. EKG shows sinus tachycardia. Chest x-ray shows no acute process. Patient is negative for influenza, RSV, COVID. On reassessment after breathing treatment and steroids patient reports that she feels much better. I explained to the patient that with the description of her pain we should run tests to rule out pulmonary embolism. Patient initially refuses any blood work and request to be treated for asthma exacerbation, feels similar to those she has had in the past. Patient later states that she will stay to have lab work performed. However I am told that the patient did not want to wait any longer to have her labs drawn and refused any further testing. I explained to the patient that if we do not perform testing we will not be able to rule out the possibility of a pulmonary embolism which can result in or permanent injury if not properly treated. Patient is of sound mind and body and able to make her own decisions. She conveys verbal understanding and continues to decline testing. Patient signed out AGAINST MEDICAL ADVICE. She will be treated for asthma exacerbation and is instructed to report back to the ER with any new or worsening symptoms. Undiagnosed new problem with uncertain prognosis? @ -No Drug Therapy requiring intensive monitoring for toxicity (Heparin, Nitro, Insulin, Cardizem)? @ -No Were any procedures done? @ -No Diagnosis/symptom? @ -Asthma exacerbation Acute, or Chronic, or Acute on Chronic? @ -Acute Uncomplicated (without systemic symptoms) or Complicated (systemic symptoms)? @ -Uncomplicated Side effects of treatment? @ -No Exacerbation, Progression, or Severe Exacerbation? @ -Exacerbation Poses a threat to life or bodily function? How? (Chest pain, [place], [place], pneumonia, PE, COPD, DKA, ARF, appy, cholecystitis, CVA, Diverticulitis, Homicidal, Suicidal, threat to staff... and all critical care pts) @ -Potentially, patient signed out AMA prior to complete workup Disposition Clinical Impression: Asthma exacerbation Disposition: LEFT AGAINST MEDICAL ADVICE Condition: Fair Instructions (If sedation given, give patient instructions): Chest Pain (ED), Asthma (ED) Additional Instructions: Follow-up with your PCP. Report back to ER with any new or worsening symptoms. Remember today that we talked about the possibility of a pulmonary embolism which can only be ruled out with blood work And/or CT, which you declined. if you are experiencing worsening chest pain, dizziness, lower extremity swelling these are just a few of the signs of a pulmonary embolism and you should report back to the ER for further testing Prescriptions: Albuterol Sulfate [Albuterol Sulfate Hfa] 2 puff PO Q6H PRN #8.5 gm PRN Reason: Shortness Of Breath predniSONE 50 mg PO DAILY 5 Days #5 tab Albuterol Nebulized [Ventolin Nebulized] 2.5 mg INHALATION Q4H PRN 8 Days #150 ml PRN Reason: Shortness Of Breath Is patient prescribed a controlled substance at d/c from ED?: No Referrals: None,Stated [Primary Care Provider] - 1-2 days Forms: PH Area PCPs Time of Disposition: 19:05
[2024-06-15] MEDS: predniSONE 20 MG TAB PO STA (17:37)
[2024-06-15] MEDS: IBUPROFEN 600 MG TAB PO STA (17:38)
--- NOTE | 2024-06-15 17:58 | XR ---
EXAMINATION TYPE: XR chest 2V DATE OF EXAM: 06/15/2024 5:51 PM COMPARISON: None TECHNIQUE: XR chest 2V Frontal and lateral views of the chest. CLINICAL INDICATION:Female, 23 years old with history of cough; FINDINGS: Lungs/Pleura: There is no evidence of pleural effusion, focal consolidation, or pneumothorax. Pulmonary vascularity: Unremarkable. Heart/mediastinum: Cardiomediastinal silhouette is unremarkable. Musculoskeletal: No acute osseous pathology. IMPRESSION: No acute cardiopulmonary disease/process. [facility], , 06/15/2024 5:56 PM
[2024-06-15 18:29] LABS: Influenza A Not Detected (Not Detectd); Influenza B Not Detected (Not Detectd); RSV Not Detected (Not Detectd)
[2024-06-15] MEDS: IPRATROPIUM-ALBUTEROL 3 ML NEB INHALATION STA (18:35)
[2024-06-15 20:47] VITALS: BP 115/70; PULSE 70; RESP 18; TEMP 97.7
== END 2024-06-15 20:59 | disposition left against medical advice (07) ==
LOC: EC 16:09
DX: J45.901 Unspecified asthma with (acute) exacerbation (principal); F17.290 Nicotine dependence, other tobacco product, uncomplicated; Z91.018 Allergy to other foods; Z91.030 Bee allergy status; Z88.8 Allergy status to other drugs, medicaments and biological substances
CPT/HCPCS: 94640; 93005; 87636; 71046; 99285; J7512

== ENCOUNTER 2024-10-04 08:39 | Day surgery (SDC) | payer OTHER ==
[2024-10-01 10:39] VITALS: BMI 28.3
--- NOTE | 2024-10-04 06:11 | HP ---
HISTORY AND PHYSICAL DATE OF SURGERY: October 04, 2024. HISTORY OF PRESENT ILLNESS: The patient is a 23-year-old 5, para 4-0-1-4, who presents to the office requesting permanent sterilization with tubal ligation. She, as noted above has 4 children and 2 other step children and is no longer interested in childbearing. She is aware of the long-term reversible options, but has requested instead to proceed with permanent sterilization. At the time of this dictation, her plan was to have laparoscopic tubal ligation with Filshie clips. PAST MEDICAL HISTORY: Significant only for a history of hypothyroidism for which she is stable on replacement. PAST SURGICAL HISTORY: Significant only for D and C for elective interruption of . CURRENT MEDICATIONS: Include only Synthroid 50 mcg daily. ALLERGIES: From a medical standpoint to Benadryl and Seroquel, both of which cause itching. She also has an allergy to banana and bee stings. SOCIAL HISTORY: The patient is single, but has a significant other. She does work outside the home with [employer]. She is a nonsmoker, but does have vape daily. There are no other social concerns. FAMILY HISTORY: Noncontributory. REVIEW OF SYSTEMS: Confined to history of present illness. PHYSICAL EXAMINATION: VITAL SIGNS: Stable, and the patient is afebrile. GENERAL: This is a well-developed, well-nourished white female in no acute distress. HEART: Has regular rhythm and rate without murmur. LUNGS: Clear to auscultation bilaterally in all bentley. ABDOMEN: Nondistended, has normoactive bowel sounds, soft, nontender, without any palpable masses, hepatosplenomegaly, or hernias. EXTREMITIES: Without any cyanosis, clubbing, or edema, and are nontender to palpation bilaterally. : Pelvic examination demonstrates normal external genitalia and BUS with normal vaginal mucosa and cervix. There is no cervical motion tenderness. Uterus is approximately 4-5 weeks in size, mid plane, mobile, nontender, normal in shape. The adnexa are normal and nontender without mass bilaterally. ASSESSMENT AND PLAN: Undesired fertility: We have discussed multiple different options, both long-term and reversible versus permanent sterilization. She has requested to undergo laparoscopic bilateral tubal occlusion with Filshie clips. The risks and complications of the procedure have been thoroughly discussed including the risks for bleeding, bleeding requiring transfusion, infection, and injury to local structures to include the bowel, bladder, and ureter. She has understood all this and has agreed to proceed. We are scheduled for the above procedure on the morning of October 04, 2024. MMODL / IJN: [id number] /
[~2024-10-04 08:39] MED LIST: LIDOCAINE 1% (10MG/ML) FOR IV START INTRADERMA PRN; Pre Op ABX Message 1 EACH MISC MISCELLANE ONE; droPERidol 2.5 MG/ML VIAL IVP PRN
[2024-10-04] MEDS: IV FLUID CONTINUATION 1,000 ML IV ONE ×2 (09:05→11:30)
[2024-10-04] MEDS: ONDANSETRON 4 MG/2 ML VIAL IVP ONE (09:32)
[2024-10-04] MEDS: LACTATED RINGERS 1,000 ML IV SCH ×2 (09:32→11:29)
[2024-10-04] MEDS: DEXAMETHASONE SOD PHOSPHATE 4 MG/ML 1 ML VIAL IV ONE (09:32)
[2024-10-04] MEDS: SCOPOLAMINE 1 MG/72 HR PATCH TRANSDERM ONE (09:34)
[2024-10-04] MEDS: MIDAZOLAM 2 MG/2 ML VIAL IV ONE (09:38)
[2024-10-04] MEDS ORDERED: PROPOFOL 10 MG/ML 20 ML VIAL IV ONE (10:13)
[2024-10-04] MEDS ORDERED: SUCCINYLCHOLINE CHLORIDE 200 MG/10 ML VIAL IV ONE (10:13)
[2024-10-04] MEDS ORDERED: LIDOCAINE 1% INJ 10MG/ML (20 ML MDV) ONE (10:13)
[2024-10-04] MEDS ORDERED: fentaNYL (PF) 50 MCG/ML 2 ML AMP ONE (10:13)
[2024-10-04] MEDS ORDERED: GLYCOPYRROLATE 0.2 MG/ML 2 ML VIAL ONE (10:13)
[2024-10-04] MEDS ORDERED: ROCURONIUM 10 MG/ML (5 ML VIAL) IV ONE (10:13)
[2024-10-04] MEDS ORDERED: NEOSTIGMINE 1 MG/ML 10 ML VIAL ONE (10:13)
[2024-10-04] MEDS ORDERED: HYDROmorphone (PF) 1 MG/ML ONE (10:13)
[2024-10-04] MEDS ORDERED: MIDAZOLAM 2 MG/2 ML VIAL ONE (10:13)
[2024-10-04] MEDS: BUPIVACAINE (PF) 0.25% 30 ML VIAL SQ ONE ×2 (10:40→10:54)
[2024-10-04] MEDS ORDERED: ONDANSETRON 4 MG/2 ML VIAL IVP PRN (10:57)
[2024-10-04] MEDS ORDERED: IBUPROFEN 600 MG TAB PO PRN (10:57)
[2024-10-04] MEDS ORDERED: METOCLOPRAMIDE 5 MG/ML 2 ML VIAL IVP PRN (10:57)
[2024-10-04] MEDS ORDERED: ACETAMINOPHEN TAB 325 MG TAB PO PRN (10:57)
[2024-10-04] MEDS ORDERED: SIMETHICONE 80 MG CHEWABLE PO PRN (10:57)
[2024-10-04] MEDS ORDERED: KETOROLAC 15 MG/ML 1 ML VIAL IVP PRN (10:57)
--- NOTE | 2024-10-04 11:05 | P.OP ---
Date of Procedure: 10/04/24 Preoperative Diagnosis: #1. Multiparity #2. Undesired fertility Postoperative Diagnosis: Same Procedure(s) Performed: #1. Laparoscopic bilateral tubal occlusion with Filshie clips Anesthesia: JAMARI Surgeon: Arden Marques Estimated Blood Loss (ml): 5 IV fluids (ml): 600 Urine output (ml): 20 Pathology: none sent Condition: stable Disposition: PACU Operative Findings: Preoperative pelvic examination demonstrated a 4 to 5-week anteverted mobile normal shaped uterus with normal adnexa bilaterally. Intraoperatively, the uterus, tubes, and ovaries were entirely normal to inspection as was the appendix, small and large bowel, liver, gallbladder, and diaphragm. A Filshie clip was firmly placed across the isthmic portion of each fallopian tube bilaterally. Description of Procedure: The patient was prepped and draped in usual fashion after general endotracheal anesthesia was administered by the anesthesiologist. A weighted speculum was placed and the acorn cannula could not be placed secondary to it being too short to large in the arms of the single-tooth tenaculum. Instead, a sponge stick was placed in the vagina for an ambulation. The bladder was drained of approximately 20 mL of clear elvia urine. Attention was turned to the abdomen where a 5 mm incision was made in a vertical fold of the umbilicus. A 5 mm optical trocar was attempted to be placed on several occasions and appeared to be in the subcu tissues on multiple occasions creating crepitus in the subcu tissue. The decision was made to proceed with another insertion site. A 5 mm incision was made in the transverse plane of the abdomen approximately 2 cm above the umbilicus where the 5 mm optical trocar was placed under direct visualization without difficulty. A pneumoperitoneum was then created and Trendelenburg positioning utilized to sweep the bowel from the pelvis. The blunt probe was also utilized to further sweep the bowel from the pelvis. The findings are as noted above with a normal uterus, tubes, and ovaries. The probe was replaced with a Filshie clip applicator which was utilized to place a Filshie clip firmly across the isthmic portion of the right fallopian tube approximately 2 cm from the cornua of the uterus. A matching Filshie clip was placed in the left side. The remainder of the abdomen was then explored with the appendix, small and large bowel, liver, gallbladder, and diaphragm appearing entirely normal though the gallbladder was somewhat distended. After finding no further pathology or findings, the instrumentation was removed and the pneumoperitoneum evacuated completely through the 2 trocar sites. The trocars were then removed and the skin was closed with interrupted subcuticular stitches of 4-0 Vicryl followed by half-inch Steri-Strips placed with Mastisol. Each of the incision was injected with quarter percent Marcaine without epinephrine, total of 10 mL divided equally between the 3 incision sites. All sponge, instrument, and needle counts were correct. Estimated blood loss for the entire case was approximately 5 mL or less. There were no complications. The patient tolerated the procedure well and proceeded to the recovery room in stable condition.
[2024-10-04 11:15] VITALS: TEMP 96.8
[2024-10-04] MEDS: HYDROmorphone 0.5 MG/0.5 ML SYRINGE IVP PRN (11:19)
[2024-10-04 13:42] VITALS: RESP 14
[2024-10-04 13:57] VITALS: BP 98/60; PULSE 56
== END 2024-10-04 14:55 | disposition home or self-care (01) ==
LOC: OR 08:39
PROVIDERS: ATTEND Obstetrics & Gynecology
DX: Z64.1 Problems related to multiparity (principal); Z30.2 Encounter for sterilization; J45.909 Unspecified asthma, uncomplicated; K21.9 Gastro-esophageal reflux disease without esophagitis; E03.9 Hypothyroidism, unspecified; F17.290 Nicotine dependence, other tobacco product, uncomplicated; F60.3 Borderline personality disorder; U07.0 Vaping-related disorder; Z91.030 Bee allergy status; Z88.8 Allergy status to other drugs, medicaments and biological substances; Z91.018 Allergy to other foods; Z79.890 Hormone replacement therapy; Z79.899 Other long term (current) drug therapy
CPT/HCPCS: 58671; 81025; J2250; J0330; J1100; J2710; J2405; J2003; J3010; J1171 ×2; J2704; J0665; J1596

== ENCOUNTER 2024-10-04 20:59 | Observation (INO) | payer OTHER ==
--- NOTE | 2024-10-04 21:34 | ED ---
Female Urogenital HPI - General Chief complaint: Urogenital Stated complaint: Urogenital-Post op Time Seen by Provider: 10/04/24 21:34 Source: patient, RN notes reviewed, old records reviewed Mode of arrival: ambulatory - History of Present Illness Initial comments: 23-year-old female presented to the ER for evaluation of urinary retention. Patient reports she underwent tubal clipping with Dr. Marques earlier today. She states she was told if she was unable to urinate within 8 hours of discharge she should return to the emergency department. Patient sta kelsy she has an extreme urge to urinate but is unable to go. She is currently rating her pain a 7 out of 10. She was discharged home with oxycodone for pain control. She also is reporting she believes her asthma is "flaring up" and is requesting a breathing treatment upon examination. She denies any fevers, chills, nausea, vomiting. Patient admits to flatulence and bowel movements. She denies any vaginal bleeding or discharge. - Related Data Home Medications Medication Instructions Recorded Confirmed Levothyroxine Sodium [Synthroid] 50 mcg PO QAM 03/15/24 10/04/24 Previous Rx's Medication Instructions Recorded Albuterol Nebulized [Ventolin 2.5 mg INHALATION Q4H PRN 8 Days 06/15/24 Nebulized] #150 ml Albuterol Sulfate [Albuterol 2 puff PO Q6H PRN #8.5 gm 06/15/24 Sulfate Hfa] Allergies Allergy/AdvReac Type Severity Reaction Status Date / Time banana Allergy Unknown Verified 10/04/24 21:11 bee venom protein (honey bee) Allergy Swelling Verified 10/04/24 21:11 diphenhydramine AdvReac Itching Verified 10/04/24 21:11 [From Benadryl] quetiapine [From Seroquel] AdvReac Itching Verified 10/04/24 21:11 Environmental AdvReac Dyspnea Uncoded 10/04/24 09:18 Review of Systems ROS Statement: Those systems with pertinent positive or pertinent negative responses have been documented in the HPI. ROS Other: All systems not noted in ROS Statement are negative. Past Medical History Past Medical History: Asthma, GERD/Reflux, Thyroid Disorder History of Any Multi-Drug Resistant Organisms: None Reported Past Surgical History: No Surgical Hx Reported Additional Past Surgical History / Comment(s): D&C 2021 Past Anesthesia/Blood Transfusion Reactions: No Reported Reaction Additional Past Anesthesia/Blood Transfusion Reaction / Comment(s): Pt states has never received anesthesia Past Psychological History: No Psychological Hx Reported Smoking Status: Former smoker, Vaper - Past Family History Brother(s) Additional Family Medical History / Comment(s): Neofibromatosis. Pt is adopted and doesn't have any other family medical hx avaliable. General Exam Limitations: no limitations General appearance: alert, in no apparent distress Respiratory exam: Present: wheezes (Mild expiratory throughout all lung field). Absent: respiratory distress, rales, rhonchi, stridor Cardiovascular Exam: Present: regular rate, normal rhythm, normal heart sounds. Absent: systolic murmur, diastolic murmur, rubs, gallop, clicks GI/Abdominal exam: Present: soft, tenderness (Lower abdomen), normal bowel sounds, other (Laparoscopic surgical incision with Steri-Strips in place noted to umbilicus and suprapubic region) Extremities exam: Present: normal inspection, full ROM, normal capillary refill. Absent: tenderness, pedal edema, joint swelling, calf tenderness Neurological exam: Present: alert, oriented X3, CN II-XII intact Skin exam: Present: warm, dry, intact, normal color. Absent: rash Course Vital Signs 10/04/24 10/04/24 10/04/24 21:08 23:33 23:45 Temperature 98.3 F Pulse Rate 64 78 80 Pulse Rate [ Pulse Oximetery ] Respiratory 18 Rate Blood Pressure 100/63 Blood Pressure [Right Arm] O2 Sat by Pulse 98 Oximetry 10/05/24 10/05/24 01:13 02:14 Temperature 97.8 F Pulse Rate 61 Pulse Rate [ 64 Pulse Oximetery ] Respiratory 16 16 Rate Blood Pressure 105/55 Blood Pressure 100/65 [Right Arm] O2 Sat by Pulse 100 100 Oximetry - Reevaluation(s) Reevaluation #1: 10/05/24 01:04 Case discussed with on-call LEAN FACILITATOR, Dr. Callahan. She advised on admission, continue Yap catheter and IV acetaminophen and ibuprofen. Medical Decision Making - Medical Decision Making Was pt. sent in by a medical professional or institution (, PA, MANAGER WIRELESS, urgent care, hospital, or fdc...) When possible be specific @ -No Did you speak to anyone other than the patient for history (EMS, parent, family, police, friend...)? What history was obtained from this source @ -No Did you review nursing and triage notes (agree or disagree)? Why? @ -I reviewed and agree with nursing and triage notes Were old charts reviewed (outside hosp., previous admission, EMS record, old EKG, old radiological studies, urgent care reports/EKG's, fdc records)? Report findings @ -Operative notes from 10 04 24 reviewed. Patient underwent tubal obstruction with clips by . Patient was discharged home around 11 AM. Differential Diagnosis (chest pain, altered mental status, abdominal pain women, abdominal pain men, vaginal bleeding, weakness, fever, dyspnea, syncope, headache, dizziness, GI bleed, back pain, seizure, CVA, palpatations, mental health, musculoskeletal)? @ -Differential Abdominal Pain Men: Appendicitis, cholecystitis, diverticulosis, ischemic bowel, pancreatitis, hepatitis, UTI, gastroenteritis, AAA, incarcerated hernia, bowel obstruction, constipation, inflammatory bowel, hepatitis, peptic ulcer disease, splenic infarction, perforated viscus, testicular torsion, this is not meant to be an all-inclusive list EKG interpreted by me (3pts min.). @ -None done X-rays interpreted by me (1pt min.). @ -None done CT interpreted by me (1pt min.). @ -CT Abdo pelvis showing right-sided hydroureteronephrosis with slightly delayed enhancement of right kidney as well as delayed excretion. No obstructing ureteral stone visualized. No clear cause of hydronephrosis possibly ureteral injury/stricture given recent surgical intervention. Calcification measuring 3 mm at the left UVJ no left-sided hydroureteronephrosis. Expected perioperative foci of gas in the peritoneum/extraperitoneal spaces. U/S interpreted by me (1pt. min.). @ -None done What testing was considered but not performed or refused? (CT, X-rays, U/S, labs)? Why? @ -None What meds were considered but not given or refused? Why? @ -None Did you discuss the management of the patient with other professionals (professionals i.e. , PA, MANAGER WIRELESS, lab, RT, psych nurse, social media marketer, law researcher, teacher, electorate officer, rn case mgr)? Give summary @ -Yes, case discussed with on-call LEAN FACILITATOR, Dr. Callahan. She advised on admission to labor and delivery, continue Ayp catheter, IV acetaminophen and IV ibuprofen Was smoking cessation discussed for >3mins.? @ -No Was critical care preformed (if so, how long)? @ -No Were there social determinants of health that impacted care today? How? (Homelessness, low income, unemployed, alcoholism, drug addiction, transportation, low edu. Level, literacy, decrease access to med. care, long term, rehab)? @ -No Was there de-escalation of care discussed even if they declined (Discuss DNR or withdrawal of care, Hospice)? DNR status @ -No What co-morbidities impacted this encounter? (DM, HTN, Smoking, COPD, CAD, Ca ncer, CVA, ARF, Chemo, Hep., AIDS, mental health diagnosis, sleep apnea, morbid obesity)? @ -Recent laparoscopic tubal obstruction/clipping, asthma Was patient admitted / discharged? Hospital course, mention meds given and route, prescriptions, significant lab abnormalities, going to OR and other p ertinent info. @ -Admitted. 23-year-old female presented the ER for evaluation of urinary retention status post tubal obstruction with clips. Vital signs stable. Patient had no signs acute distress nontoxic-appearing. Postvoid bladder scan performed showing approximately 500 mL of retained urine fro which Yap cather placed with approximately 1,000ml output. Given recent surgical intervention, laboratory studies and CT abdomen pelvis were obtained. Laboratory studies remarkable for WBC of 12.16 left shift likely reactive. Microcytic hyperchromic anemia hemoglobin 9.3. CMP unimpressive. Urinalysis unremarkable. Urine hCG. CT abd/pelvis showing mild right-sided hydroureteronephrosis with slightly delayed enhancement of right kidney as well as delayed excretion. There is no obstructing ureteral stone visualized. There is also a 3 mm calcification noted to left UVJ with no left sided hydroureternephrosis. Calcification could represent a recently passed right kidney stone which has migrated to left aspect of bladder versus adjacent phlebolith Given urinalysis is unremarkable with no evidence of hematuria past nephrolithiasis is low on my suspicion. As patient underwent recent tubal clipping surgical intervention and presented with urinary retention concern of ureteral injury and/or stricture is possible. Case was discussed with on-call LEAN FACILITATOR, Dr. Callahan. She advised on admission to antepartum unit, continue indwelling Yap catheter and IV Tylenol and i buprofen. Patient provided symptomatic treatment in the ER, with improvement. Patient received DuoNeb breathing treatment for wheezing noted on exam. Upon reevaluation, patient sleeping in exam room no signs of acute distress. Patient easily awoken. Patient educated on today's findings and is agreeable for admission. Patient admitted in stable condition for further evaluation and treatment. Case discussed with ED attending, Dr. Nair. Undiagnosed new problem with uncertain prognosis? @ -No Drug Therapy requiring intensive monitoring for toxicity (Heparin, Nitro, Insulin, Cardizem)? @ -No Were any procedures done? @ -No Diagnosis/symptom? @ -Status post tubal clipping/urinary retention/hydroureteronephrosis/rule out ureteral injury or stricture Acute, or Chronic, or Acute on Chronic? @ -Acute Uncomplicated (without systemic symptoms) or Complicated (systemic symptoms)? @ -Complicated Side effects of treatment? @ -No Exacerbation, Progression, or Severe Exacerbation? @ -No Poses a threat to life or bodily function? How? (Chest pain, [place], [place], pneumonia, PE, COPD, DKA, ARF, appy, cholecystitis, CVA, Diverticulitis, Homicidal, Suicidal, threat to staff... and all critical care pts) @ -Possibly - Lab Data Result diagrams: 10/04/24 22:03 10/04/24 22:03 Lab Results 10/04/24 10/04/24 10/04/24 Range/Units 21:46 21:46 22:03 WBC 12.16 H (4.50-10.00) 10*3/uL RBC 3.85 L (4.10-5.20) 10*6/uL Hgb 9.3 L (12.0-15.0) g/dL Hct 30.1 L (37.2-46.3) % MCV 78.2 L (80.0-97.0) fL MCH 24.2 L (27.0-32.0) pg MCHC 30.9 L (32.0-37.0) g/dL Plt Count 288 (140-440) 10*3/uL MPV 11.1 (9.5-12.2) fL Immature Gran % (Auto) 0.3 % Neutrophils % 80.0 % Lymphocytes % 12.5 % Monocytes % 6.9 % Eosinophils % 0.1 % Basophils % 0.2 % Immature Gran # 0.04 (0.00-0.04) 10*3/uL Neutrophils # 9.73 H (1.80-7.70) 10*3/uL Lymphocytes # 1.52 (0.90-5.00) 10*3/uL Monocytes # 0.84 (0.20-1.00) 10*3/uL Eosinophils # 0.01 L (0.04-0.35) 10*3/uL Basophils # 0.02 (0.00-0.10) 10*3/uL Sodium (137-145) mmol/L Potassium (3.5-5.1) mmol/L Chloride (98-107) mmol/L Carbon Dioxide (22-30) mmol/L Anion Gap mmol/L BUN (7-17) mg/dL Creatinine (0.52-1.04) mg/dL Est GFR (CKD-EPI)AfAm (>60 ml/min/1.73 sqM) Est GFR (CKD-EPI)NonAf (>60 ml/min/1.73 sqM) Glucose (74-99) mg/dL Calcium (8.4-10.2) mg/dL Total Bilirubin (0.2-1.3) mg/dL AST (14-36) U/L ALT (4-34) U/L Alkaline Phosphatase (38-126) U/L Total Protein (6.3-8.2) g/dL Albumin (3.5-5.0) g/dL Urine Color Colorless Urine Appearance Clear (Clear) Urine pH 7.0 (5.0-8.0) Ur Specific [place] 1.021 (1.001-1.035) Urine Protein Negative (Negative) Urine Glucose (UA) Negative (Negative) Urine Ketones Negative (Negative) Urine Blood Negative (Negative) Urine Nitrite Negative (Negative) Urine Bilirubin Negative (Negative) Urine Urobilinogen <2.0 (<2.0) mg/dL Ur Leukocyte Esterase Negative (Negative) Urine HCG, Qual Not Detected (Not Detectd) 10/04/24 Range/Units 22:03 WBC (4.50-10.00) 10*3/uL RBC (4.10-5.20) 10*6/uL Hgb (12.0-15.0) g/dL Hct (37.2-46.3) % MCV (80.0-97.0) fL MCH (27.0-32.0) pg MCHC (32.0-37.0) g/dL Plt Count (140-440) 10*3/uL MPV (9.5-12.2) fL Immature Gran % (Auto) % Neutrophils % % Lymphocytes % % Monocytes % % Eosinophils % % Basophils % % Immature Gran # (0.00-0.04) 10*3/uL Neutrophils # (1.80-7.70) 10*3/uL Lymphocytes # (0.90-5.00) 10*3/uL Monocytes # (0.20-1.00) 10*3/uL Eosinophils # (0.04-0.35) 10*3/uL Basophils # (0.00-0.10) 10*3/uL Sodium 133 L (137-145) mmol/L Potassium 4.2 (3.5-5.1) mmol/L Chloride 102 (98-107) mmol/L Carbon Dioxide 23 (22-30) mmol/L Anion Gap 8 mmol/L BUN 10 (7-17) mg/dL Creatinine 0.63 (0.52-1.04) mg/dL Est GFR (CKD-EPI)AfAm >90 (>60 ml/min/1.73 sqM) Est GFR (CKD-EPI)NonAf >90 (>60 ml/min/1.73 sqM) Glucose 106 H (74-99) mg/dL Calcium 9.6 (8.4-10.2) mg/dL Total Bilirubin 0.7 (0.2-1.3) mg/dL AST 20 (14-36) U/L ALT 15 (4-34) U/L Alkaline Phosphatase 61 (38-126) U/L Total Protein 6.9 (6.3-8.2) g/dL Albumin 4.0 (3.5-5.0) g/dL Urine Color Urine Appearance (Clear) Urine pH (5.0-8.0) Ur Specific [place] (1.001-1.035) Urine Protein (Negative) Urine Glucose (UA) (Negative) Urine Ketones (Negative) Urine Blood (Negative) Urine Nitrite (Negative) Urine Bilirubin (Negative) Urine Urobilinogen (<2.0) mg/dL Ur Leukocyte Esterase (Negative) Urine HCG, Qual (Not Detectd) - Radiology Data Radiology results: report reviewed, image reviewed Disposition Clinical Impression: Urinary retention, Status post tubal ligation, Hydroureteronephrosis Disposition: ADMITTED IP TO THIS HOSP Condition: Stable Time of Disposition: 01:05
[2024-10-04] MEDS: LIDOCAINE 2% URO-JET JELLY 5 ML KIT URETHRAL ONE (21:39)
[2024-10-04 22:14] LABS: Basophils # (A) 0.02 10*3/uL (0.00-0.10); Basophils % (A) 0.2 %; Eosinophils # (A) 0.01 10*3/uL (0.04-0.35); Eosinophils % (A) 0.1 %; HCT 30.1 % (37.2-46.3); HGB 9.3 g/dL (12.0-15.0); Lymphocytes # (A) 1.52 10*3/uL (0.90-5.00); Lymphocytes % (A) 12.5 %; MCH 24.2 pg (27.0-32.0); MCHC 30.9 g/dL (32.0-37.0); MCV 78.2 fL (80.0-97.0); Mean Platelet Volume 11.1 fL (9.5-12.2); Monocytes # (A) 0.84 10*3/uL (0.20-1.00); Monocytes % (A) 6.9 %; Neutrophils # (A) 9.73 10*3/uL (1.80-7.70); Platelet Count 288 10*3/uL (140-440); RBC 3.85 10*6/uL (4.10-5.20); RDW 15.9 % (11.5-14.5); WBC 12.16 10*3/uL (4.50-10.00)
[2024-10-04 22:17] LABS: Appearance,Urine Clear (Clear); Bilirubin,Urine Negative (Negative); Blood,Urine Negative (Negative); Color,Urine Colorless; Glucose,Urine (UA) Negative (Negative); Ketones,Urine Negative (Negative); Leukocyte Esterase,Urine Negative (Negative); Nitrite,Urine Negative (Negative); Protein,Urine Negative (Negative); Specific Gravity,Urine 1.021 (1.001-1.035); Urobilinogen,Urine <2.0 mg/dL (<2.0)
[2024-10-04 22:31] LABS: ALT 15 U/L (4-34); AST 20 U/L (14-36); African American GFR (CKD) >90 (>60 ml/min/1.73 sqM); Alkaline Phosphatase 61 U/L (38-126); Anion Gap 8 mmol/L; Blood Urea Nitrogen 10 mg/dL (7-17); Calcium 9.6 mg/dL (8.4-10.2); Carbon Dioxide 23 mmol/L (22-30); Chloride 102 mmol/L (98-107); Glucose 106 mg/dL (74-99); Non-African American GFR(CKD) >90 (>60 ml/min/1.73 sqM); Potassium 4.2 mmol/L (3.5-5.1); Sodium 133 mmol/L (137-145); Total Bilirubin 0.7 mg/dL (0.2-1.3); Total Protein 6.9 g/dL (6.3-8.2)
[2024-10-04] MEDS: ONDANSETRON 4 MG/2 ML VIAL IVP STA (23:11)
[2024-10-04] MEDS: KETOROLAC 15 MG/ML 1 ML VIAL IVP STA (23:12)
[2024-10-04] MEDS: HYDROmorphone 0.5 MG/0.5 ML SYRINGE IVP STA (23:12)
[2024-10-04] MEDS: IPRATROPIUM-ALBUTEROL 3 ML NEB INHALATION STA (23:31)
[2024-10-04] MEDS ORDERED: ALBUTEROL NEBULIZED 2.5 MG/3 ML INHALATION STA (23:37)
--- NOTE | 2024-10-05 00:43 | CT ---
EXAM: CT Abdomen and Pelvis With Intravenous Contrast CLINICAL HISTORY: ITS.REASON CT Reason: urinary retention s/p tubal clipping TECHNIQUE: Axial computed tomography images of the abdomen and pelvis with intravenous contrast. CTDI is 16.9 mGy and DLP is 795 mGy-cm. This CT exam was performed using one or more of the following dose reduction techniques: automated exposure control, adjustment of the mA and/or kV according to patient size, and/or use of iterative reconstruction technique. Delayed imaging was performed. COMPARISON: No relevant prior studies available. FINDINGS: Lung bases: Unremarkable. ABDOMEN: Liver: Unremarkable. No mass. Gallbladder and bile ducts: Unremarkable. No calcified stones. No ductal dilation. Pancreas: Unremarkable. No mass. No ductal dilation. Spleen: Unremarkable. No splenomegaly. Adrenals: Unremarkable. No mass. Kidneys and ureters: Mild right-sided hydroureteronephrosis with slightly delayed enhancement of the right kidney as well as delayed excretion. No obstructing ureteral stone is visualized. Calcification measuring 3 mm at the left UVJ. No left-sided hydroureteronephrosis. Subcentimeter simple right kidney midpole cysts; no follow-up indicated. Stomach and bowel: No bowel obstruction. Fluid-filled small bowel could represent ileus. Feces sign in the terminal ileum suggesting stasis. No mucosal thickening. PELVIS: Appendix: Appendix not identified. Bladder: Urinary bladder decompressed around Yap catheter. Reproductive: Status post recent tubal ligation of the uterus. ABDOMEN and PELVIS: Intraperitoneal space: Small amount of free air in the abdomen, postoperative. Trace pelvic ascites. Bones/joints: No acute fracture. No dislocation. Soft tissues: Unremarkable. Vasculature: Unremarkable. No abdominal aortic aneurysm. Lymph nodes: Unremarkable. No enlarged lymph nodes. IMPRESSION: 1. Mild right-sided hydroureteronephrosis with slightly delayed enhancement of the right kidney as well as delayed excretion. No obstructing ureteral stone is visualized. The cause for hydronephrosis is not clearly delineated. Patient is status post recent surgery. Ureteral injury or stricture is possible. 2. Calcification measuring 3 mm at the left UVJ. No left-sided hydroureteronephrosis. Considerations include nonobstructing left UVJ stone, possibly a recently passed right kidney stone which has migrated to the left aspect of the bladder, or an adjacent phlebolith. Correlate with urinalysis for hematuria. 3. Status post recent tubal ligation of the uterus. Expected postoperative foci of gas in the peritoneum/extraperitoneal spaces.
[2024-10-05] MEDS ORDERED: NALOXONE 0.4 MG/ML 1 ML VIAL IV PRN (01:02)
[2024-10-05] MEDS ORDERED: ONDANSETRON 4 MG/2 ML VIAL IVP PRN (01:02)
[2024-10-05 01:14] VITALS: RESP 16
[2024-10-05] MEDS: IBUPROFEN IV 800 MG in SODIUM CHLORIDE 0.9% 250 ML IV ONE (01:28)
[2024-10-05] MEDS: SODIUM CHLORIDE 0.9% 1,000 ML IV SCH (01:29)
[2024-10-05] MEDS: HYDROmorphone 0.5 MG/0.5 ML SYRINGE IVP PRN (05:36)
[2024-10-05] MEDS: LEVOTHYROXINE 50 MCG TAB PO SCH (07:56)
--- NOTE | 2024-10-05 08:09 | P.GSCN ---
History of Present Illness Consult date: 10/05/24 History of present illness: 23 yo female admitted by Dr Marques for urine retention post tubal ligation earlier in the day. SHe was catherterized for a large volume of urine Her urine was clear. She has no previous urological history She has a catheter in place. The patient has no history of urine retention. She was not having any difficulty urinating prior to her tubal ligation. Her indwelling catheter is clear at present. Has no other major health issues. Review of Systems All systems: negative - Constitutional Denies fever, Denies weight loss - EENT Eyes: denies blurred vision Ears, nose, mouth and throat: Denies dysphagia - Cardiovascular Denies chest pain, Denies shortness of breath - Respiratory Denies cough, Denies 7 - Gastrointestinal Reports as per HPI - Genitourinary Genitourinary: Denies dysuria, Denies hematuria - Integumentary Denies rash, Denies unusual bruising - Neurological Denies headaches, Denies syncope - Hematologic/Lymphatic Denies easy bleeding, Denies easy bruising Past Medical History Past Medical History: Asthma, GERD/Reflux, Thyroid Disorder History of Any Multi-Drug Resistant Organisms: None Reported Past Surgical History: No Surgical Hx Reported Additional Past Surgical History / Comment(s): D&C 2021 Past Anesthesia/Blood Transfusion Reactions: No Reported Reaction Additional Past Anesthesia/Blood Transfusion Reaction / Comm: Pt states has never received anesthesia Past Psychological History: No Psychological Hx Reported Smoking Status: Former smoker, Vaper - Past Family History Brother(s) Additional Family Medical History / Comment(s): Neofibromatosis. Pt is adopted and doesn't have any other family medical hx avaliable. Medications and Allergies Home Medications Medication Instructions Recorded Confirmed Type Levothyroxine Sodium [Synthroid] 50 mcg PO QAM 03/15/24 10/04/24 History Albuterol Nebulized [Ventolin 2.5 mg INHALATION Q4H PRN 8 Days 06/15/24 10/04/24 Rx Nebulized] #150 ml Albuterol Sulfate [Albuterol 2 puff PO Q6H PRN #8.5 gm 06/15/24 10/04/24 Rx Sulfate Hfa] Allergies Allergy/AdvReac Type Severity Reaction Status Date / Time banana Allergy Unknown Verified 10/04/24 21:11 bee venom protein (honey bee) Allergy Swelling Verified 10/04/24 21:11 diphenhydramine AdvReac Itching Verified 10/04/24 21:11 [From Benadryl] quetiapine [From Seroquel] AdvReac Itching Verified 10/04/24 21:11 Environmental AdvReac Dyspnea Uncoded 10/04/24 09:18 Surgical - Exam Vital Signs Temp Pulse Resp BP Pulse Ox 98.3 F 64 18 100/63 98 10/04/24 21:08 10/04/24 21:08 10/04/24 21:08 10/04/24 21:08 10/04/24 21:08 - General well developed, well nourished, no distress - Eyes normal ocular movement, no icteric - ENT no hearing loss, no congestion - Neck no masses, trachea midline - Respiratory normal respiratory effort, clear to auscultation - Abdomen Abdomen: soft, non tender, no guarding, no rigid, no rebound - Integumentary no rash, no abnormal pigmentation - Neurologic no disoriented, no combative - Psychiatric oriented to time, oriented to person, oriented to place, speech is normal, memory intact Results - Labs 10/04/24 22:03 10/04/24 22:03 Abnormal Lab Results - Last 24 Hours (Table) 10/04/24 10/04/24 Range/Units 22:03 22:03 WBC 12.16 H (4.50-10.00) 10*3/uL RBC 3.85 L (4.10-5.20) 10*6/uL Hgb 9.3 L (12.0-15.0) g/dL Hct 30.1 L (37.2-46.3) % MCV 78.2 L (80.0-97.0) fL MCH 24.2 L (27.0-32.0) pg MCHC 30.9 L (32.0-37.0) g/dL Neutrophils # 9.73 H (1.80-7.70) 10*3/uL Eosinophils # 0.01 L (0.04-0.35) 10*3/uL Sodium 133 L (137-145) mmol/L Glucose 106 H (74-99) mg/dL Diabetes panel 10/04/24 Range/Units 22:03 Sodium 133 L (137-145) mmol/L Potassium 4.2 (3.5-5.1) mmol/L Chloride 102 (98-107) mmol/L Carbon Dioxide 23 (22-30) mmol/L BUN 10 (7-17) mg/dL Creatinine 0.63 (0.52-1.04) mg/dL Glucose 106 H (74-99) mg/dL Calcium 9.6 (8.4-10.2) mg/dL AST 20 (14-36) U/L ALT 15 (4-34) U/L Alkaline Phosphatase 61 (38-126) U/L Total Protein 6.9 (6.3-8.2) g/dL Albumin 4.0 (3.5-5.0) g/dL Calcium panel 10/04/24 Range/Units 22:03 Calcium 9.6 (8.4-10.2) mg/dL Albumin 4.0 (3.5-5.0) g/dL Pituitary panel 10/04/24 Range/Units 22:03 Sodium 133 L (137-145) mmol/L Potassium 4.2 (3.5-5.1) mmol/L Chloride 102 (98-107) mmol/L Carbon Dioxide 23 (22-30) mmol/L BUN 10 (7-17) mg/dL Creatinine 0.63 (0.52-1.04) mg/dL Glucose 106 H (74-99) mg/dL Calcium 9.6 (8.4-10.2) mg/dL Adrenal panel 10/04/24 Range/Units 22:03 Sodium 133 L (137-145) mmol/L Potassium 4.2 (3.5-5.1) mmol/L Chloride 102 (98-107) mmol/L Carbon Dioxide 23 (22-30) mmol/L BUN 10 (7-17) mg/dL Creatinine 0.63 (0.52-1.04) mg/dL Glucose 106 H (74-99) mg/dL Calcium 9.6 (8.4-10.2) mg/dL Total Bilirubin 0.7 (0.2-1.3) mg/dL AST 20 (14-36) U/L ALT 15 (4-34) U/L Alkaline Phosphatase 61 (38-126) U/L Total Protein 6.9 (6.3-8.2) g/dL Albumin 4.0 (3.5-5.0) g/dL - Imaging CT scan - abdomen: report reviewed, image reviewed CT scan - pelvis: report reviewed, image reviewed Assessment and Plan Assessment: Impression: urine retention sp tubal ligation Recommendations' I would leave the catheter 72 hours and then remove The reten tion is situational due to pain and anesthesia SHe should void without problems after that
--- NOTE | 2024-10-05 08:57 | P.HPOB ---
History of Present Illness H&P Date: 10/05/24 Chief Complaint: Urinary retention status post laparoscopic tubal ligation The patient is a 23-year-old patient who underwent an uncomplicated laparoscopic bilateral tubal occlusion with Filshie clips and was discharged to home in standard fashion that she had been unable to void and was having significant discomfort as a result and reported to the emergency room at which time she was catheterized for approximately 1000 mL of clear elvia urine. As noted above, her procedure was entirely uncomplicated with minimal blood loss or any other concerns. The patient has no other issues aside from moderate discomfort. She was seen by urology this morning who recommended that she have 72 hours manage with a catheter time it can be removed and they anticipate no difficulty with further voiding at that time. Obstetrical/gynecologic history: Noncontributory Review of Systems Review of systems is confined to history of present illness. Past Medical History Past Medical History: Asthma, GERD/Reflux, Thyroid Disorder History of Any Multi-Drug Resistant Organisms: None Reported Past Surgical History: No Surgical Hx Reported Additional Past Surgical History / Comment(s): D&C 2021 Past Anesthesia/Blood Transfusion Reactions: No Reported Reaction Additional Past Anesthesia/Blood Transfusion Reaction / Comment(s): Pt states has never received anesthesia Past Psychological History: No Psychological Hx Reported Smoking Status: Former smoker, Vaper - Past Family History Brother(s) Additional Family Medical History / Comment(s): Neofibromatosis. Pt is adopted and doesn't have any other family medical hx avaliable. Medications and Allergies Home Medications Medication Instructions Recorded Confirmed Type Levothyroxine Sodium [Synthroid] 50 mcg PO QAM 03/15/24 10/04/24 History Albuterol Nebulized [Ventolin 2.5 mg INHALATION Q4H PRN 8 Days 06/15/24 10/04/24 Rx Nebulized] #150 ml Albuterol Sulfate [Albuterol 2 puff PO Q6H PRN #8.5 gm 06/15/24 10/04/24 Rx Sulfate Hfa] Allergies Allergy/AdvReac Type Severity Reaction Status Date / Time banana Allergy Unknown Verified 10/04/24 21:11 bee venom protein (honey bee) Allergy Swelling Verified 10/04/24 21:11 diphenhydramine AdvReac Itching Verified 10/04/24 21:11 [From Benadryl] quetiapine [From Seroquel] AdvReac Itching Verified 10/04/24 21:11 Environmental AdvReac Dyspnea Uncoded 10/04/24 09:18 Exam Vital Signs Temp Pulse Pulse Resp BP BP Pulse Ox 10/05/24 02:14 97.8 F 64 16 100/65 100 10/05/24 01:13 61 16 105/55 100 10/04/24 23:45 80 10/04/24 23:33 78 10/04/24 21:08 98.3 F 64 18 100/63 98 Intake and Output 10/04/24 10/05/24 10/05/24 22:59 06:59 14:59 Output Total 2400 Balance -2400 Output: Urine 2400 Uretheral (Yap) 2000 Other: Voiding Method Toilet Weight 66.678 kg 66.678 kg In general, this is a well-developed, well-nourished female in no acute distress. Her heart has a regular rhythm and rate without murmur. Her lungs are clear to auscultation bilateral in all bentley. Her abdomen is nondistended, soft, with appropriate postsurgical tenderness. There are no mass, hepatosplenomegaly, or hernias. Her ins is appear appropriate for postoperative day #1. Her extremities are without any cyanosis, clubbing, or edema and are nontender to palpation bilaterally. Pelvic examination is deferred. Results Result Diagrams: 10/04/24 22:03 10/04/24 22:03 Abnormal Lab Results - Last 24 Hours (Table) 10/04/24 10/04/24 Range/Units 22:03 22:03 WBC 12.16 H (4.50-10.00) 10*3/uL RBC 3.85 L (4.10-5.20) 10*6/uL Hgb 9.3 L (12.0-15.0) g/dL Hct 30.1 L (37.2-46.3) % MCV 78.2 L (80.0-97.0) fL MCH 24.2 L (27.0-32.0) pg MCHC 30.9 L (32.0-37.0) g/dL Neutrophils # 9.73 H (1.80-7.70) 10*3/uL Eosinophils # 0.01 L (0.04-0.35) 10*3/uL Sodium 133 L (137-145) mmol/L Glucose 106 H (74-99) mg/dL Assessment and Plan (1) Status post tubal ligation Current Visit: Yes Status: Acute Code(s): Z98.51 - TUBAL LIGATION STATUS SNOMED Code(s): 901886614 (2) Urinary retention Current Visit: Yes Status: Acute Code(s): R33.9 - RETENTION OF URINE, UNSPE CIFIED SNOMED Code(s): 791294762 Plan: I will stop IV fluids as well as IV pain medications in favor of oral pain medications. Diet will be advanced to regular. Assuming she tolerates a regular diet and pain is adequately controlled with oral pain medications, she will be discharged to home this afternoon. As urology has recommended she have 3 days of indwelling catheter drainage or self catheterization, she will be discharged to home with a leg bag to return to the office for removal.
--- NOTE | 2024-10-05 09:01 | P.DS ---
Providers Date of admission: 10/05/24 01:23 Expected date of discharge: 10/05/24 Attending physician: Arden Marques Consults: 10/05/24 06:00 Consult Physician Urgent Consulting Provider: Chavez Beal Consult Reason/Comments: hydroureteronephrosis Do you want consulting provider notified?: Yes, Notify in am Primary care physician: Stated None - Discharge Diagnosis(es) (1) Status post tubal ligation Current Visit: Yes Status: Acute (2) Urinary retention Current Visit: Yes Status: Acute Hospital Course: The patient is a 23-year-old woman who underwent uncomplicated occlusion with Filshie clips yesterday and was discharged to home in standard fashion with oral pain medications. Over the course of the afternoon, she developed significant urinary retention and was unable to void. She return to the emergency department at which time she was drained of approximately 1 L of clear elvia urine. She was admitted for overnight catheter drainage and underwent consultation with urology who recommended that she have 72 hours of an catheter versus self catheterization. She has no other complications and will have her diet advanced. Assuming she tolerates regular diet and has stable pain control with oral pain medications, she will be discharged home to follow-up in the office in 2 days for catheter removal and then into for routine postsurgical evaluation. She was instructed to call with any particular concerns or problems from either a postsurgical standpoint or from the urinary catheter standpoint. She understood her instructions and agrees to follow-up as noted above. Discharge medications included only those from surgery which included oxycodone 5 mg, 2 hours as needed pain, #20 dispensed with no refills. Procedures: #1. Urinary catheter placement #2. Urology consultation Patient Condition at Discharge: Stable Plan - Discharge Summary New Discharge Prescriptions: No Action Levothyroxine Sodium [Synthroid] 50 mcg PO QAM Albuterol Sulfate [Albuterol Sulfate Hfa] 2 puff PO Q6H PRN #8.5 gm PRN Reason: Shortness Of Breath Albuterol Nebulized [Ventolin Nebulized] 2.5 mg INHALATION Q4H PRN 8 Days #150 ml PRN Reason: Shortness Of Breath Discharge Medication List Levothyroxine Sodium [Synthroid] 50 mcg PO QAM 03/15/24 [History] Albuterol Nebulized [Ventolin Nebulized] 2.5 mg INHALATION Q4H PRN 8 Days #150 ml 06/15/24 [Rx] Albuterol Sulfate [Albuterol Sulfate Hfa] 2 puff PO Q6H PRN #8.5 gm 06/15/24 [Rx] Follow up Appointment(s)/Referral(s): None,Stated [Primary Care Provider] - 1-2 days
[2024-10-05] MEDS: ACETAMINOPHEN IV (For NPO) 1,000 MG in EMPTY BAG 1 BAG IVPB STA (10:17)
[2024-10-05] MEDS: ACETAMINOPHEN TAB 500 MG TAB PO STA (13:57)
[2024-10-05 14:11] VITALS: BP 96/62; PULSE 68; TEMP 98.1
== END 2024-10-05 15:45 | disposition home or self-care (01) ==
LOC: EC 20:59 → 4FBP 10-05 01:23
PROVIDERS: ADMIT Obstetrics & Gynecology; ATTEND Obstetrics & Gynecology
DX: R33.9 Retention of urine, unspecified (principal); N13.30 Unspecified hydronephrosis; J45.909 Unspecified asthma, uncomplicated; K21.9 Gastro-esophageal reflux disease without esophagitis; E07.9 Disorder of thyroid, unspecified; F17.290 Nicotine dependence, other tobacco product, uncomplicated; Z98.51 Tubal ligation status; Z79.890 Hormone replacement therapy; Z79.899 Other long term (current) drug therapy
CPT/HCPCS: 96376; 96365; 96375; 99285; 36415; 94640; 80053; 85025; 81003; 81025; 74177; G0378; J2405; J1885; J1741; J1171 ×2; Q9967